=== PATIENT | male | born 1965 | race Caucasian/White ===

== ENCOUNTER 2018-04-07 20:06 | Inpatient (IN) ==
[2018-04-07 21:38] LABS: Basophils # 0.1 K/mcL (0.0-0.2); Basophils % 0.5 %; Eosinophils # 0.6 K/mcL (0.0-0.6); Eosinophils % 2.9 %; Hematocrit 41.8 % (37.5-50.1); Hemoglobin 15.2 g/dL (12.9-16.9); Immature Granulocytes % 2.2 % (0-4); Lymphocytes # 1.9 K/mcL (0.6-4.6); Lymphocytes % 10.2 %; Mean Corpuscular HGB Conc 36.4 g/dL (31.6-35.5); Mean Corpuscular Hemoglobin 36.5 pg (28.0-33.3); Mean Corpuscular Volume 100.2 fL (83.0-100.0); Mean Platelet Volume 10.4 fL (9.4-12.4); Monocytes # 1.5 K/mcL (0.0-1.3); Monocytes % 7.8 %; Neutrophils # 14.5 K/mcL (1.6-8.9); Nucleated Red Blood Cells 0.1 /100 WBC (0); Platelet Count 147 K/mcL (140-400); Red Blood Count 4.17 M/mcL (4.19-5.50); Red Cell Distribution Width 15.4 % (11.5-14.5); Segmented Neutrophils % 76.4 %
--- NOTE | 2018-04-07 21:42 | Emergency Department Note ---
Disposition Clinical Impression: Pulmonary embolism, bilateral, Elevated troponin, Shortness of breath, Hyponatremia Leukocytosis Qualifiers: Leukocytosis type: unspecified Qualified Code(s): D72.829 - Elevated white blood cell count, unspecified Disposition: Admitted As Inpatient Condition: Fair Time of Disposition: 00:00 SOB HPI - General Chief Complaint: ED Shortness of Breath/Dyspnea Stated Complaint: SOB x 3 weeks Time Seen by Provider: 04/07/18 21:08 Source: patient Limitations: no limitations Nursing Notes Reviewed: Yes Vital Signs Reviewed: Yes - History of Present Illness Patient is a 52-year-old male who presents to [facility] ED with a chief complaint of shortness of breath. States his symptoms have been worsening over the last 3 months. He started getting worsening lower external swelling in the bilateral lower extremities over the last month. Also reports chest pain since 1 month ago. States it is intermittent and worse with exertion. Patient states he has been caring for his grandchildren's was has not had time to come in to get checked out. Denies any prior cardiac history. Patient is not on any medications for anything. Pt Subjective Complaint: shortness of breath Onset (ago): month(s) (3) Severity: moderate Consistency/Duration: gradually worsening Improves with: nothing Worsens with: lying flat Associated symptoms: Reports: chest pain, pain with inspiration, cough. Denies : fever, wheezing, palpitations, nausea/vomiting Treatment prior to arrival: none Cough present: Yes Cough Description: Involuntary Cough Frequency: Intermittent Sputum production: No - Related Data Home oxygen amount: none Previous Rx's Medication Instructions Recorded Ondansetron ODT [Zofran ODT] 4 mg SL Q8HR PRN #15 tab.rapdis 10/06/16 Allergies Allergy/AdvReac Type Severity Reaction Status Date / Time Penicillins Allergy Vomiting Verified 10/05/16 20:02 Sulfa (Sulfonamide Allergy See Verified 10/05/16 20:03 Antibiotics) Comments All systems ED: reviewed and negative except as stated. Past Medical History - Past Medical History Attestation: Yes The following information was validated with the patient. Source: patient Medical history: Reports: no medical history Psychiatric history: Reports: no psych history - Social History Smoking Status: Current every day smoker Smokeless Tobacco Status: No Alcohol use: Reports: occasionally Drug use: Reports: none Physical Exam - General Limitations: no limitations General appearance: alert, in no apparent distress - Head Head exam: atraumatic, normocephalic, normal inspection - Eye Eye exam: Present: normal appearance, PERRL, EOMI - ENT ENT exam: normal exam, normal oropharynx, mucous membranes moist - Neck Neck exam: Present: normal inspection, full ROM, trachea midline - Chest Chest inspection: Present: normal inspection, symmetric chest wall rise - Respiratory Respiratory exam: Present: normal lung sounds bilaterally - Cardiovascular Cardiovascular exam: Present: normal rhythm, tachycardia - Abdominal Exam Abdominal exam: Present: soft, Non-Tender. Absent: tenderness, distention, guarding, rebound, rigidity - Extremities Exam Extremities exam: Present: pedal edema (2+). Absent: calf tenderness - Back Exam Back exam: Present: normal inspection, full ROM. Absent: tenderness - Neurological Exam Neurological exam: Present: alert, oriented X3 - Psychiatric Psychiatric exam: Present: normal affect, normal mood - Skin Skin exam: Present: warm, dry, intact, normal color Course Course Narrative: Patient seen and examined. Shortness of breath worse over the last 3 months. Cardiopulmonary workup initiated. He does have bilateral lower extremity edema. Also describes for him hard to breathe when he is lying down though he thinks that is from the drainage in his throat. Concern for possible new onset of congestive heart failure. - Reevaluation(s) Reevaluation #1: Lab called with critical troponin of 0.05. Suspect this is likely secondary to demand ischemia. However we will give a dose of 325 mg aspirin. Patient's d- dimer also elevated at 1705. CTA of the chest ordered to evaluate for pulmonary embolus. Patient does have a leukocytosis of 19,000. Hyponatremia of 125. Normal renal function. Time: 22:02 Reevaluation #2: [place] radiology called me about the CTA findings of bilateral pulmonary embolus. States he does note any right ventricular strain. Coags and heparin drip ordered. I discussed with the hospitalists Dr. Schmitt who has accepted patient for admission. Time: 22:48 Vital Signs Temperature 98.0 F 04/07/18 20:07 Pulse Rate 132 04/07/18 20:07 Respiratory Rate 16 04/07/18 20:07 Blood Pressure 100/75 04/07/18 20:07 O2 Sat by Pulse Oximetry 96 04/07/18 20:07 Temperature 98.0 F 04/08/18 07:08 Pulse Rate 108 04/08/18 07:08 Respiratory Rate 20 04/08/18 07:08 Blood Pressure 121/76 04/08/18 07:08 O2 Sat by Pulse Oximetry 96 04/08/18 07:08 Oxygen Delivery Oxygen Delivery Nasal Cannula Shortness of Breath/Dyspnea - Medical Records Medical records reviewed: Yes I reviewed the patient's medical records. - Lab Data Lab results reviewed: Yes I reviewed the patient's lab results. Result diagrams: 04/08/18 05:21 04/08/18 03:22 Lab Results 04/07/18 04/07/18 04/07/18 Range/Units 21:08 21:08 21:08 WBC 19.0 H (4.3-11.1) K/mcL RBC 4.17 L (4.19-5.50) M/mcL Hgb 15.2 (12.9-16.9) g/dL Hct 41.8 (37.5-50.1) % MCV 100.2 H (83.0-100.0) fL MCH 36.5 H (28.0-33.3) pg MCHC 36.4 H (31.6-35.5) g/dL RDW 15.4 H (11.5-14.5) % Plt Count 147 (140-400) K/mcL MPV 10.4 (9.4-12.4) fL Immature Gran % 2.2 (0-4) % Seg Neutrophils % 76.4 % Lymphocytes % 10.2 % Monocytes % 7.8 % Eosinophils % 2.9 % Basophils % 0.5 % Neutrophils # 14.5 H (1.6-8.9) K/mcL Lymphocytes # 1.9 (0.6-4.6) K/mcL Monocytes # 1.5 H (0.0-1.3) K/mcL Eosinophils # 0.6 (0.0-0.6) K/mcL Basophils # 0.1 (0.0-0.2) K/mcL Nucleated RBCs/100 WBC 0.1 H (0) /100 WBC PT (9.4-12.1) Seconds INR APTT (26.0-36.0) Seconds D-Dimer 1705 H (0-500) ng/mLFEU Sodium 125 L (136-145) mEq/L Potassium 3.7 (3.5-5.1) mEq/L Chloride 93 L (98-107) mEq/L Carbon Dioxide 22 L (23-29) mEq/L BUN 9 (6-20) mg/dL Creatinine 0.65 L (0.70-1.30) mg/dL Est GFR ( Amer) > 60 (> 60) Est GFR (Non-Af Amer) > 60 (> 60) BUN/Creatinine Ratio 14 (6-26) Glucose 82 (70-105) mg/dL Calculated Osmolality 258 L (280-300) Lactic Acid (0.5-2.2) mmol/L Calcium 8.5 L (8.6-10.3) mg/dL Troponin I 0.05 H* (< 0.04) ng/mL B-Natriuretic Peptide (Less than 100) pg/mL 04/07/18 04/07/18 04/07/18 Range/Units 21:08 21:19 22:59 WBC (4.3-11.1) K/mcL RBC (4.19-5.50) M/mcL Hgb (12.9-16.9) g/dL Hct (37.5-50.1) % MCV (83.0-100.0) fL MCH (28.0-33.3) pg MCHC (31.6-35.5) g/dL RDW (11.5-14.5) % Plt Count (140-400) K/mcL MPV (9.4-12.4) fL Immature Gran % (0-4) % Seg Neutrophils % % Lymphocytes % % Monocytes % % Eosinophils % % Basophils % % Neutrophils # (1.6-8.9) K/mcL Lymphocytes # (0.6-4.6) K/mcL Monocytes # (0.0-1.3) K/mcL Eosinophils # (0.0-0.6) K/mcL Basophils # (0.0-0.2) K/mcL Nucleated RBCs/100 WBC (0) /100 WBC PT 13.5 H (9.4-12.1) Seconds INR 1.2 APTT 30.3 (26.0-36.0) Seconds D-Dimer (0-500) ng/mLFEU Sodium (136-145) mEq/L Potassium (3.5-5.1) mEq/L Chloride (98-107) mEq/L Carbon Dioxide (23-29) mEq/L BUN (6-20) mg/dL Creatinine (0.70-1.30) mg/dL Est GFR ( Amer) (> 60) Est GFR (Non-Af Amer) (> 60) BUN/Creatinine Ratio (6-26) Glucose (70-105) mg/dL Calculated Osmolality (280-300) Lactic Acid 1.2 (0.5-2.2) mmol/L Calcium (8.6-10.3) mg/dL Troponin I (< 0.04) ng/mL B-Natriuretic Peptide 246 H (Less than 100) pg/mL - Radiology Data Radiology results reviewed: Yes I reviewed the patient's radiology results. Chest X-Ray 04/07/18 21:08 IMPRESSION: No acute cardiopulmonary disease. D/ / Sabino Dewitt MD / Sabino Dewitt MD Interpreting Provider: Sabino Dewitt MD Chest CTA 04/07/18 21:57 IMPRESSION: 1. Bilateral pulmonary emboli. 2. Ground-glass opacities are nonspecific and may be infectious, inflammatory or indicate pulmonary edema. Critical results were called by Dr. Howie Alvarez MD to [facility] on 04/07/2018 at 22:46. D/ / Howie Alvarez MD / Howie Alvarez MD Interpreting Provider: Howie Alvarez MD - EKG Data EKG attestation: Yes I reviewed and interpreted this EKG. EKG results narrative: EKG done at 2106 shows sinus tachycardia with a rate of [address] elevation or depression noted. T-wave inversions noted in leads V2 and V3. Left axis deviation. Low voltage throughout.
[2018-04-07 21:55] LABS: BUN/Creatinine Ratio 14 (6-26); Blood Urea Nitrogen 9 mg/dL (6-20); Calcium 8.5 mg/dL (8.6-10.3); Carbon Dioxide 22 mEq/L (23-29); Chloride 93 mEq/L (98-107); Glucose 82 mg/dL (70-105); Osmolality,Calculated 258 (280-300); Potassium 3.7 mEq/L (3.5-5.1); Sodium 125 mEq/L (136-145); eGFR For African Americans > 60 (> 60); eGFR For Non-African Americans > 60 (> 60)
[2018-04-07 21:57] LABS: Troponin I 0.05 ng/mL (< 0.04)
[2018-04-07] MEDS ORDERED: Isovue-370 500 ML INFUS..BTL IV ONE (21:57)
[2018-04-07] MEDS ORDERED: Aspirin 81 MG TAB.CHEW PO STA (21:58)
[2018-04-07] MEDS ORDERED: *HR* Heparin 5,000 UNIT/ML VIAL IVP ONE (22:46)
[2018-04-07] MEDS ORDERED: *HR* Heparin 5,000 UNIT/ML VIAL IVP PRN ×2 (22:46)
[2018-04-07 23:37] LABS: Activated Partial Thrombo Time 30.3 Seconds (26.0-36.0); INR 1.2; Prothrombin Time 13.5 Seconds (9.4-12.1)
[2018-04-07] MEDS: Heparin 25,000 UNIT/500 ML D5W 25,000 UNIT/500 ML BAG IVC SCH (23:50)
--- NOTE | 2018-04-07 23:51 | Emergency Department Note ---
Disposition Clinical Impression: Pulmonary embolism, bilateral, Elevated troponin, Shortness of breath, Hyponatremia Leukocytosis Qualifiers: Leukocytosis type: unspecified Qualified Code(s): D72.829 - Elevated white blood cell count, unspecified Disposition: Admitted As Inpatient Condition: Fair General Adult HPI - General Chief complaint: ED Shortness of Breath/Dyspnea Stated complaint: SOB x 3 weeks Time Seen by Provider: 04/07/18 21:08 Source: patient Limitations: no limitations Nursing Notes Reviewed: Yes Vital Signs Reviewed: Yes - History of Present Illness Pain Scale: 9 - Related Data Previous Rx's Medication Instructions Recorded Ondansetron ODT [Zofran ODT] 4 mg SL Q8HR PRN #15 tab.rapdis 10/06/16 Allergies Allergy/AdvReac Type Severity Reaction Status Date / Time Penicillins Allergy Vomiting Verified 10/05/16 20:02 Sulfa (Sulfonamide Allergy See Verified 10/05/16 20:03 Antibiotics) Comments Past Medical History - Past Medical History Medical history: Reports: no medical history Psychiatric history: Reports: no psych history - Social History Smoking Status: Current every day smoker Smokeless Tobacco Status: No Alcohol use: Reports: occasionally Drug use: Reports: none Physical Exam - General Limitations: no limitations General appearance: alert, in no apparent distress Course Vital Signs Temperature 98.0 F 04/07/18 20:07 Pulse Rate 132 04/07/18 20:07 Respiratory Rate 16 04/07/18 20:07 Blood Pressure 100/75 04/07/18 20:07 O2 Sat by Pulse Oximetry 96 04/07/18 20:07 Temperature 98.0 F 04/08/18 07:08 Pulse Rate 108 04/08/18 07:08 Respiratory Rate 20 04/08/18 07:08 Blood Pressure 121/76 04/08/18 07:08 O2 Sat by Pulse Oximetry 96 04/08/18 07:08 Oxygen Delivery Oxygen Delivery Nasal Cannula Medical Decision Making - Lab Data Result diagrams: 04/08/18 05:21 04/08/18 03:22 Lab Results 04/07/18 04/07/18 04/07/18 Range/Units 21:08 21:08 21:08 WBC 19.0 H (4.3-11.1) K/mcL RBC 4.17 L (4.19-5.50) M/mcL Hgb 15.2 (12.9-16.9) g/dL Hct 41.8 (37.5-50.1) % MCV 100.2 H (83.0-100.0) fL MCH 36.5 H (28.0-33.3) pg MCHC 36.4 H (31.6-35.5) g/dL RDW 15.4 H (11.5-14.5) % Plt Count 147 (140-400) K/mcL MPV 10.4 (9.4-12.4) fL Immature Gran % 2.2 (0-4) % Seg Neutrophils % 76.4 % Lymphocytes % 10.2 % Monocytes % 7.8 % Eosinophils % 2.9 % Basophils % 0.5 % Neutrophils # 14.5 H (1.6-8.9) K/mcL Lymphocytes # 1.9 (0.6-4.6) K/mcL Monocytes # 1.5 H (0.0-1.3) K/mcL Eosinophils # 0.6 (0.0-0.6) K/mcL Basophils # 0.1 (0.0-0.2) K/mcL Nucleated RBCs/100 WBC 0.1 H (0) /100 WBC PT (9.4-12.1) Seconds INR APTT (26.0-36.0) Seconds D-Dimer 1705 H (0-500) ng/mLFEU Sodium 125 L (136-145) mEq/L Potassium 3.7 (3.5-5.1) mEq/L Chloride 93 L (98-107) mEq/L Carbon Dioxide 22 L (23-29) mEq/L BUN 9 (6-20) mg/dL Creatinine 0.65 L (0.70-1.30) mg/dL Est GFR ( Amer) > 60 (> 60) Est GFR (Non-Af Amer) > 60 (> 60) BUN/Creatinine Ratio 14 (6-26) Glucose 82 (70-105) mg/dL Calculated Osmolality 258 L (280-300) Lactic Acid (0.5-2.2) mmol/L Calcium 8.5 L (8.6-10.3) mg/dL Troponin I 0.05 H* (< 0.04) ng/mL B-Natriuretic Peptide (Less than 100) pg/mL 04/07/18 04/07/1818 Range/Units 21:08 21:19 22:59 WBC (4.3-11.1) K/mcL RBC (4.19-5.50) M/mcL Hgb (12.9-16.9) g/dL Hct (37.5-50.1) % MCV (83.0-100.0) fL MCH (28.0-33.3) pg MCHC (31.6-35.5) g/dL RDW (11.5-14.5) % Plt Count (140-400) K/mcL MPV (9.4-12.4) fL Immature Gran % (0-4) % Seg Neutrophils % % Lymphocytes % % Monocytes % % Eosinophils % % Basophils % % Neutrophils # (1.6-8.9) K/mcL Lymphocytes # (0.6-4.6) K/mcL Monocytes # (0.0-1.3) K/mcL Eosinophils # (0.0-0.6) K/mcL Basophils # (0.0-0.2) K/mcL Nucleated RBCs/100 WBC (0) /100 WBC PT 13.5 H (9.4-12.1) Seconds INR 1.2 APTT 30.3 (26.0-36.0) Seconds D-Dimer (0-500) ng/mLFEU Sodium (136-145) mEq/L Potassium (3.5-5.1) mEq/L Chloride (98-107) mEq/L Carbon Dioxide (23-29) mEq/L BUN (6-20) mg/dL Creatinine (0.70-1.30) mg/dL Est GFR ( Amer) (> 60) Est GFR (Non-Af Amer) (> 60) BUN/Creatinine Ratio (6-26) Glucose (70-105) mg/dL Calculated Osmolality (280-300) Lactic Acid 1.2 (0.5-2.2) mmol/L Calcium (8.6-10.3) mg/dL Troponin I (< 0.04) ng/mL B-Natriuretic Peptide 246 H (Less than 100) pg/mL Critical Care Time Critical Care Time: Yes Total Critical Care Time: 45 Attestation: Critical care performed: Time is exclusive of separately billable procedures. Time includes: direct patient care, patient reassessment, coordination of patient care, interpretation of data (laboratory data, radiology data, and respiratory data), review of patient's medical records, medical consultation and documentation of patient care. Procedures included in critical care time: Procedures excluded from critical care time: Attestation Statement - Attestation Attestation: I, Evan Arnold MD, personally evaluated this patient and discussed their management with the resident physician. I reviewed the resident's note and agree with the documented findings, medical decision making, and plan of care. 52-year-old male presents to the emergency department with a complaint of shortness of breath for the past 5-6 months, worse over the past 4 months. Also worse over the past several weeks. Some cough. No sputum production. Some pleuritic chest pain with coughing or deep breathing. Patient states that he is a single father with 3 small children and also some grandchildren that he has been racing and he is been unable to go the doctor because he has to care for the children. He finally just got the grandchildren with her mother and his children were sent to their mothers and [facility]. On examination patient is a well-developed well-nourished male in no acute distress. He is alert and oriented 3. There is no cyanosis or diaphoresis. He is mildly tachypneic. Breath sounds are clear and equal bilaterally. Heart regular with a mild to moderate tachycardia. Abdomen soft and nontender with normal bowel sounds. Trace pedal edema bilaterally. EKG shows a sinus tachycardia with ventricular rate of 121. Moderate T-wave abnormality, consider anterior ischemia. Chest x-ray negative. Labs reviewed. WBC 19. Sodium 125. Troponin 0.05. BNP 246. D-dimer 1705. CTA of the chest obtained and showed: 1. Bilateral pulmonary emboli. 2. Ground-glass opacities are nonspecific and may be infectious, inflammatory or indicate pulmonary edema. Heparin infusion initiated. The hospitalist, Dr. Schmitt, was consulted and accepted admission of the patient.
--- NOTE | 2018-04-07 23:53 | Internal Med History&Physical ---
<Jannie Camargo - Last Filed: 04/08/18 06:27> Date of Encounter: 04/08/18 Time of Encounter: 23:00 Internal Medicine - H&P: HPI Chief complaint: dyspnea Admitted From: Home History of present illness: Mr. Neumann is a 52 year old male without known PMH who presents to the emergency department with shortness of breath x 6 months, which has been significantly worsening over last 4 months. He reports that he has not come to the hospital sooner to be checked out because he hasn't had time because he's a single parent and is also watching several grandchildren. States his breathing has gotten worse because he is only able to walk 15 feet before getting dyspneic, energy level is significantly decreased, and states there are times when he can hardly stand long enough to cook meals. Has had bilateral lower extremity edema for a few months which is new for him. Reports feeling lightheaded and "off balance" on a daily basis. He admits to orthopnea and must sleep in a recliner. He has pleuritic chest pain that is worse with cough; productive cough, but cannot describe the sputum because he swallows the sputum rather than spit it out. He states that he has been having alternating fevers and chills for the last few months. He also admits to decreased PO intake due to daily nausea and vomiting--denies bright red blood or coffee-ground appearance, describes it as foamy white. He denies any personal or familial history of clotting disorders. In the emergency department the patient was afebrile, tachycardic HR 132, RR 16 , BP 100/75, SPO2 96%. Initial lab workup significant for d-dimer 1705, troponin 0.05, BNP 246. Chest CTA with contrast shows extensive pulmonary emboli throughout all lobes bilaterally and nonspecific ground-glass opacities. He was given 324 mg aspirin, heparin bolus, and heparin gtt was started in the ED. He was admitted to the hospitalist service for further evaluation and care. Past Med Surg Social Fam HX - Past Medical History Medical history: no medical history Psychiatric history: no psych history - Past Surgical History Additional surgical history: Jaw sx - Social History Smoking Status: Current every day smoker Smokeless Tobacco Status: No Alcohol use: occasionally Drug use: none - Family History Mother Living Status: Hx Family Cardiac Disorders: Yes ([place], stroke) Father Hx Family Cardiac Disorders: Yes (HTN) Internal Medicine - H&P: Meds No Known Home Drugs 04/08/18 [History] 3 Allergy/AdvReac Type Severity Reaction Status Date / Time Penicillins Allergy Vomiting Verified 04/08/18 08:45 Sulfa (Sulfonamide Allergy Nausea Verified 04/08/18 08:45 Antibiotics) All Systems PM: A 10-system review of systems was performed and is negative for pertinent findings except as documented above in the HPI. - Constitutional Constitutional: as per HPI - EENT Eyes: floaters - Cardiovascular Cardiovascular ROS IM: as per HPI, chest pain, dyspnea, dyspnea on exertion, edema, lightheadedness, orthopnea - Respiratory Respiratory: as per HPI, cough, dyspnea, dyspnea on exertion, pain with cough - Gastrointestinal Gastrointestinal: as per HPI, diarrhea, nausea, vomiting, no abdominal pain - Musculoskeletal Musculoskeletal ROS IM: joint swelling (bilateral ankle) - Neurological Neurological ROS: as per HPI, disequilibrium, dizziness, other visual disturbances - Constitutional Vitals: Temp Pulse Resp BP Pulse Ox 98.0 F 117 20 103/81 98 04/07/18 20:07 04/07/18 22:30 04/07/18 22:30 04/07/18 22:30 04/07/18 22:30 General appearance: Present: mild distress, A&O X 3, answers questions appropriately - Head Head exam: Present: atraumatic, normocephalic - Eye Eye exam: Present: normal appearance, PERRL - ENT ENT exam: Present: mucous membranes moist - Neck Neck exam general surgery: Present: normal inspection, supple, trachea midline - Respiratory Respiratory exam: Present: CTAB, tachypnea (respiratory effort increased). Absent: rales, rhonchi, wheezes Additional comments: coughing frequently - Cardiovascular Cardiovascular exam: Present: +S1, +S2, tachycardia (sinus on monitor) - GI/Abdominal GI/Abdominal exam: Present: normal bowel sounds, soft. Absent: distended, guarding, rebound, rigid, tenderness - Extremities Exam Extremities exam: Present: pedal edema (non pitting), tenderness, warm. Absent : cyanotic Additional comments: BLE non-pittting edema; bilateral calf swelling; DP pulses 2+/4 bilateral - Back Exam Back exam: Present: normal inspection - Neurological Exam Neurological exam: Present: alert, CN II-XII intact, oriented X3, no focal deficits. Absent: facial droop, speech deficit Additional comments: moves all extremities spontaneously - Psychiatric Psychiatric exam: Present: normal affect, normal mood - Skin Skin exam: Present: dry, intact, normal color. Absent: cyanosis, rash Internal Med - H&P Results - Labs CBC & Chem 7: 04/08/18 05:21 04/08/18 03:22 - Assessment and plan (1) Pulmonary emboli Current Visit: Yes Status: Acute Assessment and plan: Chest CTA with contrast shows extensive pulmonary emboli throughout all lobes bilaterally Wells' score 7.5 CXR negative for infiltrate or pleural fluid Most likely cause for pt's c/o dyspnea No known h/o clotting disorder--likely need work-up for coagulopathy SpO2 95-100% on 2L nasal cannula Plan Continuous pulse ox Continuous cardiac monitoring Supplemental oxygenation Heparin gtt Check PTT in morning Ultrasound BLE for possible DVT Hematology consult for rec's on anticoagulation (2) Elevated troponin Current Visit: Yes Status: Acute Assessment and plan: Troponin 0.05 May be due to myocardial ischemia from ACS and/or PE; heart failure and stress cardiomyopathy are also possible Multiple pulmonary emboli on CTA chest EKG shows T-wave abnormalities in V2 and V3, no ST elevations or depressions Pt denies any cardiac history, but admits family hx Plan Trend troponin x 2 Continuous cardiac monitoring ACS workup Cardiac consult Echocardiogram in AM (3) Elevated d-dimer Current Visit: Yes Status: Acute Assessment and plan: D-dimer 1705 Most likely related to the multiple pulmonary emboli seen on CT Plan as above for "Pulmonary emboli" (4) Elevated brain natriuretic peptide (BNP) level Current Visit: Yes Status: Acute Assessment and plan: BNP 246 Possible etiology includes PE and CHF Plan as above for "Pulmonary emboli" and "Elevated troponin" (5) Hyponatremia Current Visit: Yes Status: Acute Assessment and plan: Na 125 May be related to reduced effective arterial blood volume d/t possible heart failure Calculated serum osmolality 258 Plan Recheck on morning labs Urine and serum osmolality (6) Leukocytosis Current Visit: Yes Status: Acute Assessment and plan: Afebrile White count 19 Likely related d/t stress reaction Plan Follow on morning labs Qualifiers: Leukocytosis type: unspecified Qualified Code(s): D72.829 - Elevated white blood cell count, unspecified (7) Tobacco abuse Current Visit: Yes Status: Acute Assessment and plan: Nicotine patch if patient desires (8) DVT prophylaxis Current Visit: Yes Status: Acute Assessment and plan: On heparin gtt - Time Spent With Patient Total time spent is greater than 50% in coordination of care (as documented) at patient's floor/unit and/or counseling patient: <Kathy Brown - Last Filed: 04/11/18 06:41> Date of Encounter: 04/08/18 Internal Medicine - H&P: HPI History of present illness: Mr. Neumann is a 52 year old male All Systems PM: A 10-system review of systems was performed and is negative for pertinent findings except as documented above in the HPI. - Constitutional Vitals: Temp Pulse Resp BP Pulse Ox 98.2 F 93 16 116/75 92 04/11/18 04:04 04/11/18 04:04 04/11/18 04:04 04/11/18 04:04 04/11/18 04:04 Internal Med - H&P Results - Labs CBC & Chem 7: 04/11/18 04:37 04/11/18 04:37 Labs: Short CBC 04/11/18 Range/Units 04:37 WBC 10.9 (4.3-11.1) K/mcL Hgb 13.2 (12.9-16.9) g/dL Hct 37.3 L (37.5-50.1) % Plt Count 200 (140-400) K/mcL Neutrophils # 7.5 (1.6-8.9) K/mcL BMP 04/11/18 04:37 Sodium 133 L Potassium 4.1 Chloride 103 Carbon Dioxide 24 BUN 7 Creatinine 0.53 L Glucose 121 H Calcium 8.4 L - Impressions ITS Impressions Echocardiogram 04/08/18 07:00 Impressions: Technically challenging due to body habitus. Sinus tachycardia. LVEF 65-70%. Indeterminate diastolic function. Atypical septal motion. RV size is not optimally visualized. Function appears mildly reduced by Doppler but visualization is limited. No significant valvular dysfunction. No significant TR signal to estimate RVSP. IVC is not dilated and demonstrates normal respiratory collapse. Left Ventricular Wall Motion: Rest Echo Findings All wall segments showed normal motion. Findings: Study Quality * Technically challenging due to body habitus. ECG Findings * Sinus tachycardia. Left Ventricle * LVEF 65-70%. * Indeterminate diastolic function. * LV chamber size and wall thickness appear normal. * Atypical septal motion. Right Ventricle * RV size is not optimally visualized. Function appears mildly reduced by Doppler but visualization is limited. Left Atrium * Normal left atrial size. Right Atrium * Normal right atrial size. Aortic Valve * No aortic regurgitation. * Aortic valve not well visualized. * No aortic stenosis. Mitral Valve * Normal mitral valve structure. * No mitral regurgitation. * No mitral stenosis. Tricuspid Valve * Normal tricuspid valve structure. * Trace tricuspid regurgitation. * Estimated RA pressure is 3 mmHg. Pulmonic Valve * Pulmonic valve is not well visualized. * No pulmonic stenosis. * No pulmonic regurgitation. Pulmonary Artery * Pulmonary artery not well visualized. Aorta * Normally sized aortic root. Pericardium * There is no pericardial effusion present. Interatrial Septum * No evidence of PFO by color Doppler. IVC * Normal IVC dimensions and inspiratory collapse. Abdomen/Pelvis CT 04/08/18 23:00 IMPRESSION: 1. Bilateral DVT involving the bilateral superficial femoral veins and on the left the common femoral vein. There is no extension into the external iliac veins. 2. Pancolonic diverticulosis with sigmoid colon wall thickening which could either indicate sequelae of chronic diverticular disease or colon cancer. D/ / Howie Alvarez MD / Howie Alvarez MD Interpreting Provider: Howie Alvarez MD - Attending Attestation I have personally performed the crawley portion of history and physical examination. I discussed these findings,assessment and plans outlined above with the resident, and I agree with the proposed assessment and plan. - Assessment and plan (1) Elevated troponin Current Visit: Yes Status: Acute (2) Leukocytosis Current Visit: Yes Status: Resolved Qualifiers: Leukocytosis type: unspecified Qualified Code(s): D72.829 - Elevated white blood cell count, unspecified (3) DVT prophylaxis Current Visit: Yes Status: Acute (4) Pulmonary embolism, bilateral Current Visit: Yes Status: Acute (5) DVT (deep venous thrombosis) Current Visit: Yes Status: Acute Qualifiers: DVT location: lower extremity Affected thrombotic vein of extremity: iliac Chronicity: acute Laterality: bilateral Qualified Code(s): I82.423 - Acute embolism and thrombosis of iliac vein, bilateral (6) Pulmonary edema Current Visit: Yes Status: Acute Qualifiers: Chronicity: acute Qualified Code(s): J81.0 - Acute pulmonary edema - Time Spent With Patient Total time spent is greater than 50% in coordination of care (as documented) at patient's floor/unit and/or counseling patient:
[2018-04-08 04:30] LABS: BUN/Creatinine Ratio 16 (6-26); Blood Urea Nitrogen 9 mg/dL (6-20); Calcium 8.2 mg/dL (8.6-10.3); Carbon Dioxide 22 mEq/L (23-29); Chloride 98 mEq/L (98-107); Glucose 85 mg/dL (70-105); Osmolality,Calculated 264 (280-300); Potassium 3.8 mEq/L (3.5-5.1); Sodium 128 mEq/L (136-145); eGFR For African Americans > 60 (> 60); eGFR For Non-African Americans > 60 (> 60)
[2018-04-08 05:51] LABS: Basophils # 0.1 K/mcL (0.0-0.2); Basophils % 0.5 %; Eosinophils # 0.7 K/mcL (0.0-0.6); Eosinophils % 3.9 %; Hemoglobin 14.5 g/dL (12.9-16.9); Immature Granulocytes % 1.9 % (0-4); Lymphocytes # 2.5 K/mcL (0.6-4.6); Lymphocytes % 14.7 %; Mean Corpuscular HGB Conc 36.3 g/dL (31.6-35.5); Mean Corpuscular Hemoglobin 36.4 pg (28.0-33.3); Mean Corpuscular Volume 100.5 fL (83.0-100.0); Mean Platelet Volume 10.2 fL (9.4-12.4); Monocytes # 1.4 K/mcL (0.0-1.3); Monocytes % 8.6 %; Neutrophils # 11.7 K/mcL (1.6-8.9); Platelet Count 149 K/mcL (140-400); Red Blood Count 3.98 M/mcL (4.19-5.50); Red Cell Distribution Width 15.4 % (11.5-14.5); Segmented Neutrophils % 70.4 %
[2018-04-08 06:00] LABS: Chol/HDL Ratio 4.7 (0-4.9)
[2018-04-08] MEDS ORDERED: D5 IVC ONE (06:36)
[2018-04-08] MEDS ORDERED: NACL 0.9% IVC ONE (06:36)
[2018-04-08] MEDS ORDERED: Nicotine 7 MG PATCH.TD24 TD SCH (09:00)
--- NOTE | 2018-04-08 09:24 | Cardiology Consult Note ---
Addendum entered and electronically signed by Karina Perez CNP 04/08/18 10: 47: Original Note: Date of Encounter: 04/08/18 Time of Encounter: 09:15 Assessment and Plan (1) Pulmonary embolism, bilateral Current Visit: Yes Status: Acute Per cardiology: -Admitted with increased shortness of breath. -Bilateral PEs noted per CT. -On heparin drip. -Lower extremity duplex pending. -Management per primary service. (2) Elevated troponin Current Visit: Yes Status: Acute Per cardiology: -Troponins 0.05, 0.05, 0.04 in the setting of PE. -Denies chest pain. -ECG with ST, HR 121, T wave inversions noted in anterior leads. No previous ECGs to review. -Echo pending. -On heparin drip. -LDL this admission 54, not on statin. -Do not suspect NSTEMI, suspect demand ischemia related to above. No cardiac rehab consult warranted. -Further recommendations pending TTE. -Will start ASA, BB. (3) Elevated brain natriuretic peptide (BNP) level Current Visit: Yes Status: Acute Per cardiology: -BNP noted to be 246 in the setting of PE -Bilateral lower extremity edema noted. -Chest CT with ground glass opacities, possible pulmonary edema. -TTE pending. -Further recommendations pending TTE. Discussion w patient/family: The assessment and plan as outlined above was discussed with the patient who expressed understanding and agreement. All questions were answered. Thank you for involving us in the care of your patient. Please call with any questions. Discussed and reviewed with . History of Present Illness Consult date: 04/07/18 Requesting physician: Jannie Camargo Consult reason: elevated troponin Chief complaint: shortness of breath History of present illness: Mr. Neumann is a 52 year old male with a relevant past medical history of GERD, anxiety, tobacco abuse who presented to [facility] with complaints of increased shortness of breath. Patient states he has noticed shortness of breath for a few months now, however states he did not seek medical treatment. Patient reports he has been raising 3 children by himself and was too busy to seek care. Patient also reports lower extremity edema. Patient denies chest pain. Reports fatigue. Past Med Surg Social Fam HX - Past Medical History Attestation: Yes The following information was validated with the patient. Source: patient, old records reviewed Medical history: GERD Psychiatric history: anxiety - Past Surgical History Additional surgical history: Jaw sx - Social History Smoking Status: Current every day smoker Packs per day: 1 Smokeless Tobacco Status: No Alcohol use: occasionally Drug use: none - Family History Mother Living Status: Hx Family Cardiac Disorders: Yes ([place], stroke) Father Hx Family Cardiac Disorders: Yes (HTN) Medications and Allergies No Known Home Drugs 04/08/18 [History] 3 Allergy/AdvReac Type Severity Reaction Status Date / Time Penicillins Allergy Vomiting Verified 04/08/18 08:45 Sulfa (Sulfonamide Allergy Nausea Verified 04/08/18 08:45 Antibiotics) All Systems Review: The remainder of the systems were reviewed and are negative - Cardiovascular Cardiovascular: as per HPI, dyspnea at rest, dyspnea on exertion, leg edema Physical Examination Vital Signs, Last 4 Hours Temp Pulse Resp BP Pulse Ox 04/08/18 07:08 98.0 F 108 20 121/76 96 General: Conversant, No Apparent Distress HEENT: Atraumatic, Normocephaly, Mucus Membranes Moist Neck: No JVD, Normal carotid pulses Cardiac: Reg Rate and Rhythm, Normal S1 and S2, No Murmur Lungs: Normal Breath Sounds, No Wheeze, Rales, Rhonchi Neuro: Alert and responsive, No focal deficits noted Abdomen: Soft, Non-Tender Skin: No rashes noted on visualized skin Musculoskeletal: No Chest Wall Tenderness Extremities: No Clubbing, No Cyanosis, Normal Pulses, Other (Bilateral, moderate lower extremity edema noted. ) Results 04/08/18 05:21 04/08/18 03:22 Lab Results Impressions Chest X-Ray 04/07/18 21:08 IMPRESSION: No acute cardiopulmonary disease. D/ / Sabino Dewitt MD / Sabino Dewitt MD Interpreting Provider: Sabino Dewitt MD Chest CTA 04/07/18 21:57 IMPRESSION: 1. Bilateral pulmonary emboli. 2. Ground-glass opacities are nonspecific and may be infectious, inflammatory or indicate pulmonary edema. Critical results were called by Dr. Howie Alvarez MD to Glenny Woodward on 04/07/2018 at 22:46. D/ / Howie Alvarez MD / Howie Alvarez MD Interpreting Provider: Howie Alvarez MD Active Medications Heparin Sodium (Porcine) (Heparin) 6,400 unit 70 unit/kg (6400 unit) IVP Q6HR PRN PRN Reason: SEE COMMENTS Stop: 10/07/18 22:47 Heparin Sodium (Porcine) (Heparin) 3,200 unit 35 unit/kg (3200 unit) IVP Q6H PRN PRN Reason: SEE COMMENTS Stop: 10/07/18 22:47 Last Admin: 04/08/18 06:12 Dose: 3,200 unit Heparin Sodium/Dextrose (Heparin 25,000 Unit/500 Ml D5w) 25,000 unit in 500 mls @ 25.401 mls/hr IVC .[id number] CHARISMA; 14 UNIT/KG/HR PRN Reason: Protocol Stop: 10/07/18 23:01 Last Titration: 04/08/18 06:08 Dose: 16 unit/kg/hr, 29.03 mls/hr Dextrose/Sodium Chloride (D5% And 0.9% Nacl 1000 Ml) 250 mls @ 75 mls/hr IVC .[id number] ONE Stop: 04/08/18 09:55 Last Admin: 04/08/18 08:31 Dose: 75 mls/hr Laboratory Tests 04/07/18 04/07/18 04/07/18 21:08 21:08 21:08 WBC 19.0 H Hgb Creatinine Troponin I 0.05 H* B-Natriuretic Peptide 246 H 04/08/18 04/08/18 04/08/18 03:22 03:22 05:21 WBC 16.6 H Hgb 14.5 Creatinine 0.55 L Troponin I 0.05 H* B-Natriuretic Peptide 04/08/18 07:47 WBC Hgb Creatinine Troponin I 0.04 H* B-Natriuretic Peptide - Imaging and Cardiology Chest Xray: report reviewed Echo: pending - EKG Interpretation EKG results cardiology: personally reviewed (ECG with ST, HR 121. T wave inversions noted in anterior leads.), other (Telemetry reviewed with average HR previous 12 hours noted to be 110, ST. PACs noted.) Consult Discharge Plan - Plan Referrals: Deborah Leos DO [Resident] - 04/15/18 5:00 pm
--- NOTE | 2018-04-08 09:44 | Pulmonology Consult Note ---
Date of Encounter: 04/08/18 Time of Encounter: 09:15 Assessment and Plan (1) Acute respiratory failure with hypoxia Current Visit: Yes Status: Acute Patient presenting with Acute respiratory failure with hypoxia secondary to Bilateral Multi-lobar PE now saturating well on Room air . (2) Pulmonary embolism, bilateral Current Visit: Yes Status: Acute Patient has unprovoked PE to continue Heparin therapy , patient has extensive bilateral PE with some RV strain clinically with High BNP and Troponin leak , ECHO study was suboptimal no significant RV strain no TR jet , IVC was not distended with collapse with respiratory variation . The current shortness of breadth can be due to this multiple Bilateral PE complicated by diastolic heart failure . Patient might be a candidate for Newer Oral anticoagulant . Patient will need Full Hypercoagulable work up will leave it to oncology consult team will also need age appropriate cancer screening. Like for Colon , Pancreas and prostate will leave it Oncology team we can start with Tumour markers CA19-9 , PSA i communicated my assesment to referring physician. (3) Pulmonary edema Current Visit: Yes Status: Acute ECHO didnt shows any evidence of significant RV failure . Has some indeterminate diastolic dysfunction he might benefit some gentle diuresis if his orthopnea is very symptomatic Qualifiers: Chronicity: acute Qualified Code(s): J81.0 - Acute pulmonary edema (4) Elevated brain natriuretic peptide (BNP) level Current Visit: Yes Status: Acute History of Present Illness Consult date: 04/08/18 Requesting physician: Lyly Webb Reason for consult: dyspnea, cough, pulmonary embolism Chief complaint: Shortness of Breadth History of present illness: 52 year old male doesnt follow with doctors as an outpatient doesnt have any diagnosed past medical history, doesnt do any age appropriate cancer screening . Patient is pretty active mello taking care of his 6 grand children found to have slowly progressive shortness of breadth with some cough had some orthopnea , denies any chest pain or chest tightness , denies any pedal edema came to the ER as his shortness of breadth slowly progressed to the level that cannot walk in his house , denied neuro or abdominal symptoms denied any intracranial issues or GI bleed issues in the past , CTA showed extensive Bilateral multilobar Pulmonary embolism , has extensive DVT patient is on IV Heparin . pulmonary was consulted for this Pulmonary embolism with DVT. Past Med Surg Social Fam HX - Past Medical History Medical history: GERD Psychiatric history: anxiety - Past Surgical History Additional surgical history: Jaw sx - Social History Smoking Status: Current every day smoker Packs per day: 1 Smokeless Tobacco Status: No Alcohol use: occasionally Drug use: none - Family History Mother Living Status: Hx Family Cardiac Disorders: Yes ([place], stroke) Father Hx Family Cardiac Disorders: Yes (HTN) Medications and Allergies No Known Home Drugs 04/08/18 [History] 3 Allergy/AdvReac Type Severity Reaction Status Date / Time Penicillins Allergy Vomiting Verified 04/08/18 08:45 Sulfa (Sulfonamide Allergy Nausea Verified 04/08/18 08:45 Antibiotics) All Systems: The remainder of the systems were reviewed and are negative Physical Examination Vital Signs: Vital Signs, Last 4 Hours Temp Pulse Resp BP Pulse Ox 04/08/18 07:08 98.0 F 108 20 121/76 96 Results - Laboratory Findings CBC and BMP: 04/08/18 05:21 04/08/18 03:22 PT/INR, D-dimer PT 13.5 Seconds (9.4-12.1) H 04/07/18 22:59 D-Dimer 1705 ng/mLFEU (0-500) H 04/07/18 21:08 Abnormal lab findings: Abnormal lab results WBC 16.6 K/mcL (4.3-11.1) H 04/08/18 05:21 RBC 3.98 M/mcL (4.19-5.50) L 04/08/18 05:21 MCV 100.5 fL (83.0-100.0) H 04/08/18 05:21 MCH 36.4 pg (28.0-33.3) H 04/08/18 05:21 MCHC 36.3 g/dL (31.6-35.5) H 04/08/18 05:21 RDW 15.4 % (11.5-14.5) H 04/08/18 05:21 Neutrophils # 11.7 K/mcL (1.6-8.9) H 04/08/18 05:21 Monocytes # 1.4 K/mcL (0.0-1.3) H 04/08/18 05:21 Eosinophils # 0.7 K/mcL (0.0-0.6) H 04/08/18 05:21 Nucleated RBCs/100 WBC 0.1 /100 WBC (0) H 04/07/18 21:08 PT 13.5 Seconds (9.4-12.1) H 04/07/18 22:59 APTT 54.9 Seconds (26.0-36.0) H D 04/08/18 05:21 D-Dimer 1705 ng/mLFEU (0-500) H 04/07/18 21:08 Sodium 128 mEq/L (136-145) L 04/08/18 03:22 Carbon Dioxide 22 mEq/L (23-29) L 04/08/18 03:22 Creatinine 0.55 mg/dL (0.70-1.30) L 04/08/18 03:22 Calculated Osmolality 264 (280-300) L 04/08/18 03:22 Calcium 8.2 mg/dL (8.6-10.3) L 04/08/18 03:22 Troponin I 0.04 ng/mL (< 0.04) H* 04/08/18 07:47 B-Natriuretic Peptide 246 pg/mL (Less than 100) H 04/07/18 21:08 HDL Cholesterol 20 mg/dL (40-59) L 04/08/18 05:21 - Clinical Findings Intake & Output: Intake & Output 04/07/18 04/08/18 04/08/18 23:59 07:59 15:59 Intake Total 150 / 150 Output Total 600 / 600 Balance -450 / -450 Consult Discharge Plan - Plan Referrals: Deborah Leos DO [Resident] - 04/15/18 5:00 pm
--- NOTE | 2018-04-08 11:25 | Internal Med Progress Note ---
Date of Encounter: 04/08/18 Time of Encounter: 11:23 - Assessment and plan (1) Pulmonary embolism, bilateral Current Visit: Yes Status: Acute Assessment and plan: Newly diagnosed bilateral PE. Hemodynamically stable. Echocardiogram ordered . Heparin drip started. Pulmonologists septic technician, and chicken vaccinator consulted. (2) DVT (deep venous thrombosis) Current Visit: Yes Status: Acute Assessment and plan: New onset. Doppler plant technician called with the findings. I consulted vascular surgeon immediately and talk to him with no further recommendation but advised to continue heparin drip. Qualifiers: DVT location: lower extremity Affected thrombotic vein of extremity: iliac Chronicity: acute Laterality: bilateral Qualified Code(s): I82.423 - Acute embolism and thrombosis of iliac vein, bilateral (3) Elevated troponin Current Visit: Yes Status: Acute Assessment and plan: Reclamation Furnace Operator's on board and does not suspect NST WI but demand ischemia related to above. Started aspirin and beta silvina. Echo ordered. Will call chicken vaccinator to review echo soon. (4) Leukocytosis Current Visit: Yes Status: Acute Assessment and plan: No obvious infiltrate. But will cover patient for possible underlying pneumonia in context of present scenario Qualifiers: Leukocytosis type: unspecified Qualified Code(s): D72.829 - Elevated white blood cell count, unspecified (5) Pulmonary edema Current Visit: Yes Status: Acute Assessment and plan: Raised BNP in the setting of PE. Chest CT with groundglass opacity possible pulmonary edema. A strict I&O's. A weighted echocardiogram report. Will consider diuretic if advised by chicken vaccinator after reviewing echocardiogram otherwise continue to monitor. No IV fluid. Qualifiers: Chronicity: acute Qualified Code(s): J81.0 - Acute pulmonary edema (6) DVT prophylaxis Current Visit: Yes Status: Acute Assessment and plan: CONTINUE HEPARIIN DRIP - Time Spent With Patient Total time spent is greater than 50% in coordination of care (as documented) at patient's floor/unit and/or counseling patient: 25 - 35 minutes - Subjective Interval history: still SOB, mild chest pain. doppler USG b/l extensive DVT, echo pending. denies fever, chills, N/V/D, abdomen pain, ADLER, dizzy, urine complain. frequent cough - Constitutional Vitals: Temp Pulse Resp BP Pulse Ox 98.3 F 106 20 120/80 98 04/08/18 11:17 04/08/18 11:17 04/08/18 11:17 04/08/18 11:17 04/08/18 11:17 General appearance: Present: mild distress, A&O X 3, answers questions appropriately Exam: General appearance: No acute distress, A&O X 3 Head exam: Atraumatic Eye exam: EOMI, PERRLA ENT exam: Moist oral mucosa Neck nontender, supple Respiratory exam: diminished BS bilaterally Cardiovascular exam: Regular rate and rhythm, no systolic murmur Abdominal exam: Soft, nontender, nondistended, positive bowel sounds Extremities exam: No calf tenderness, no pedal edema Present:peripheral pulses palpable, warm extremities Skin- dry, intact Neurological exam: Alert, awake, oriented 3, CN II-XII intact, no focal deficits. No facial droop. Normal speech. Internal Medicine: Result - Labs CBC & Chem 7: 04/08/18 05:21 04/08/18 03:22 Labs: Short CBC 04/08/18 Range/Units 05:21 WBC 16.6 H (4.3-11.1) K/mcL Hgb 14.5 (12.9-16.9) g/dL Hct 40.0 (37.5-50.1) % Plt Count 149 (140-400) K/mcL Neutrophils # 11.7 H (1.6-8.9) K/mcL BMP 04/08/18 03:22 Sodium 128 L Potassium 3.8 Chloride 98 Carbon Dioxide 22 L BUN 9 Creatinine 0.55 L Glucose 85 Calcium 8.2 L Cardiac Enzymes 04/08/18 04/08/18 Range/Units 03:22 07:47 Troponin I 0.05 H* 0.04 H* (< 0.04) ng/mL - ABG Interpretation ABG results: PT/INR, D-dimer PT 13.5 Seconds (9.4-12.1) H 04/07/18 22:59 D-Dimer 1705 ng/mLFEU (0-500) H 04/07/18 21:08 Consult Discharge Plan - Plan Referrals: Deborah Leos DO [Resident] - 04/15/18 5:00 pm
[2018-04-08] MEDS ORDERED: Albuterol 2.5 MG/3 ML NEBULIZER IH PRN (11:47)
[2018-04-08] MEDS: Metoprolol XL (24 HR) Succ 25 MG TAB.ER.24H PO SCH (13:03)
[2018-04-08] MEDS: Levofloxacin 750 MG/150 ML 750 MG/150 ML BAG IVPB SCH (13:03)
[2018-04-08] MEDS ORDERED: Isovue-370 500 ML INFUS..BTL IV ONE (13:49)
--- NOTE | 2018-04-08 14:05 | Oncology Inp Consult Note ---
<Oxana Burton L - Last Filed: 04/08/18 13:53> Date of Encounter: 04/08/18 Time of Encounter: 13:15 Assessment and Plan (1) Pulmonary emboli Status: Acute Assessment and plan: Chest CTA with contrast shows extensive pulmonary emboli throughout all lobes bilaterally and nonspecific ground-glass opacities. O2 sats WNL on room air. Tachycardia has improved since admission with HR 105- 110. Symptoms stabilized. Presents with sign of clinical RV strain with High BNP, Troponin leak, orthopnea , ECHO study was suboptimal but did not reveal any significant RV strain. Appreciate pulmonology/cardiology recommendations. Plan: Continue heparin gtt. Recommend Lovenox at discharge. Will arrange for follow up with Dr. Goodwin in about 7-14 days, further discussion on transitioning to oral AC to take place on an outpatient basis. Length of AC treatment is TBD dependant upon response to treatment but may be 6 months or greater. First unprovoked thrombotic event, no precipitating factor, high risk factors include smoking/obesity, but this would not explain his clot burden at his age. Initiated hypercoagulable workup with testing for antiphospholipid syndrome, if negative further workup to be considered on outpatient basis. Please see plan for DVT below. Qualifiers: Pulmonary embolism type: other Chronicity: unspecified Acute cor pulmonale presence: without acute cor pulmonale Qualified Code(s): I26.99 - Other pulmonary embolism without acute cor pulmonale (2) Hyponatremia Status: Acute Assessment and plan: Exact etiology unclear but suspect may be secondary to acute respiratory distress upon presentation versus SIADH Check urine osmalality, urine Na, urine creatinine. Serum osm low at 264. Glucose WNL. Improving since admission without any intervention therefore suspect this is secondary to his respiratory compromise (3) DVT (deep venous thrombosis) Status: Acute Assessment and plan: Preliminary venous doppler report reveals acute thrombosis in the right iliac through right tibial, right greater saphenous and lesser saphenous vein, left iliac through left tibial vein and left lesser saphenous vein. Not able to view past distal iliac vein on venous doppler so this is a suboptimal study to view extension into IVC. He currently denies LE pain, states edema has recently improved. Check CT abdomen/pelvis with IV contrast at 2300 tonight (timed to allow about 24 hour break from contrast load from CTA). If he has extension beyond distal iliac, may consider consult to vascular tomorrow for IVC filter placement. Please refer to Dr. Goodwin's attestation below for additional details. Qualifiers: DVT location: lower extremity Affected thrombotic vein of extremity: iliac Chronicity: acute Laterality: bilateral Qualified Code(s): I82.423 - Acute embolism and thrombosis of iliac vein, bilateral - Data of Consult Patient: new to practice Consult date: 04/08/18 Requesting Physician: Norma Schmitt MD Primary Care Provider: Tomy Campbell DO - Consult Narrative Reason for consult: Acute PE, Bilateral LE DVT History of present illness: Mr. Neumann is a 52 year old male with no prior medical history, presented to [facility] ER on 04/07/2018 with report of worsening SOB over the past 6 months and BLE edema that has waxed and waned over the past 3 months. His SOB has recently worsened to the point where he cannot walk 10-15 feet without having to rest, he reports chest pain, pleuritic pain with inspiration, pain with cough, weakness and fevers/chills. He denies hemoptysis. He is active in caring for his children and grandchildren, he is a single parent, he lost his , daughter and niece unexpectedly a couple of years ago. He was tachycardic upon presentation to the ER with HR 132. Initial lab workup significant for d-dimer 1705, troponin 0.05, BNP 246. Chest CTA with contrast shows extensive pulmonary emboli throughout all lobes bilaterally and nonspecific ground-glass opacities. He was admitted on a heparin gtt. Preliminary venous doppler report reveals acute thrombosis in the right iliac through right tibial, right greater saphenous and lesser saphenous vein, left iliac through left tibial vein and left lesser saphenous vein. He currently denies LE pain, states edema has recently improved. He denies any prior history of DVT/PE. He denies a family history of DVT/MD. He denies personal or family history of cancer. He denies any recent procedure/ surgical intervention, travel or injury. Risk factors for DVT/PE include current every day smoker and obesity, however risk factors do not explain his degree of clot burden at his age. Past Med Surg Social Fam HX - Past Medical History Medical history: GERD Psychiatric history: anxiety - Past Surgical History Additional surgical history: Jaw sx - Social History Smoking Status: Current every day smoker Packs per day: 1 Smokeless Tobacco Status: No Alcohol use: occasionally Drug use: none - Family History Mother Living Status: Hx Family Cardiac Disorders: Yes (VT, stroke) Father Hx Family Cardiac Disorders: Yes (HTN) Medications and Allergies No Known Home Drugs 04/08/18 [History] 3 Allergy/AdvReac Type Severity Reaction Status Date / Time Penicillins Allergy Vomiting Verified 04/08/18 08:45 Sulfa (Sulfonamide Allergy Nausea Verified 04/08/18 08:45 Antibiotics) Constitutional: Present: anorexia, chills, fatigue, fever(s), weakness, weight loss Eyes: Absent: change in vision Nose, mouth and throat: Absent: dysphagia Cardiovascular: Present: as per HPI, chest pain, dyspnea on exertion, lightheadedness Respiratory: Present: as per HPI, cough, dyspnea, pain on inspiration, chest congestion. Absent: hemoptysis Gastrointestinal: Absent: abdominal pain, hematemesis, hematochezia, melena, nausea, vomiting Additional comments: denies dysuria Musculoskeletal: Present: muscle weakness Integumentary: Absent: rash, wounds Neurological: Absent: focal weakness, frequent falls Psychiatric: Present: as per HPI Hematologic/Lymphatic: Present: as per HPI Oncology - Exam - Constitutional Vitals: Temp Pulse Resp BP Pulse Ox 98.3 F 106 20 120/80 98 04/08/18 11:17 04/08/18 11:17 04/08/18 11:17 04/08/18 11:17 04/08/18 11:17 General appearance: cooperative, no acute distress, no febrile - Head Head exam: Present: atraumatic - ENT ENT exam: Present: mucous membranes moist - Respiratory Respiratory exam: Present: wheezes. Absent: respiratory distress - Cardiovascular Cardiovascular exam: Present: RRR, +S1, +S2 Additional comments: HR 110 - GI/Abdominal GI/Abdominal exam: Present: normal bowel sounds, soft. Absent: guarding, rebound, tenderness - Extremities Exam Extremities exam: Present: pedal edema. Absent: calf tenderness - Neurological Exam Neurological exam: Present: alert, oriented X3, no focal deficits, strengths equal and symetr throughout - Psychiatric Psychiatric exam: Present: normal affect, normal mood - Skin Skin exam: Present: dry, intact, normal color, warm Consult Discharge Plan - Plan Referrals: Deborah Leos DO [Resident] - 04/15/18 5:00 pm <Martin Goodwin - Last Filed: 04/09/18 11:44> Date of Encounter: 04/08/18 - Data of Consult Requesting Physician: Norma Schmitt MD Primary Care Provider: Tomy Campbell DO - Consult Narrative History of present illness: Mr. Neumann is a 52 year old male Oncology - Exam - Constitutional Vitals: Temp Pulse Resp BP Pulse Ox 98.0 F 99 18 105/74 99 04/09/18 11:08 04/09/18 11:14 04/09/18 11:08 04/09/18 11:08 04/09/18 11:08 Oncology - Results Labs: 3 04/09/18 04/09/18 04/09/18 07:50 07:50 07:33 WBC 12.1 H RBC 3.70 L Hgb 13.1 Hct 36.9 L MCV 99.7 MCH 35.4 H MCHC 35.5 RDW 15.6 H Plt Count 159 MPV 10.1 Immature Gran % 2.3 Seg Neutrophils % 69.2 Lymphocytes % 14.6 Monocytes % 10.1 Eosinophils % 3.1 Basophils % 0.7 Neutrophils # 8.4 Lymphocytes # 1.8 Monocytes # 1.2 Eosinophils # 0.4 Basophils # 0.1 APTT 66.0 H Sodium 131 L Potassium 3.5 Chloride 100 Carbon Dioxide 24 BUN 7 Creatinine 0.50 L Est GFR ( Amer) > 60 Est GFR (Non-Af Amer) > 60 BUN/Creatinine Ratio 14 Glucose 114 H POC Glucose Serum Osmolality Calculated Osmolality 271 L Calcium 8.1 L Troponin I Triglycerides Cholesterol LDL Cholesterol, Calc VLDL Cholesterol, Calc HDL Cholesterol Cholesterol/HDL Ratio Urine Color Urine Clarity Urine pH Ur Specific [place] Urine Protein Urine Glucose (UA) Urine Ketones Urine Blood Urine Nitrite Urine Bilirubin Urine Urobilinogen Ur Leukocyte Esterase Urine Microscopic RBC Urine Microscopic WBC Ur Squamous Epith Cells Other Crystals Urine Bacteria Hyaline Casts Ur Culture Indicated? Urine Osmolality Urine Creatinine Urine Sodium 3 04/09/18 04/08/18 04/08/18 01:32 22:40 22:40 WBC RBC Hgb Hct MCV MCH MCHC RDW Plt Count MPV Immature Gran % Seg Neutrophils % Lymphocytes % Monocytes % Eosinophils % Basophils % Neutrophils # Lymphocytes # Monocytes # Eosinophils # Basophils # APTT 57.5 H Sodium Potassium Chloride Carbon Dioxide BUN Creatinine Est GFR ( Amer) Est GFR (Non-Af Amer) BUN/Creatinine Ratio Glucose POC Glucose Serum Osmolality Calculated Osmolality Calcium Troponin I Triglycerides Cholesterol LDL Cholesterol, Calc VLDL Cholesterol, Calc HDL Cholesterol Cholesterol/HDL Ratio Urine Color [place] A Urine Clarity Clear Urine pH 6.0 Ur Specific [place] 1.030 H Urine Protein Trace Urine Glucose (UA) Normal Urine Ketones 15 H Urine Blood Negative Urine Nitrite Positive A Urine Bilirubin Small H Urine Urobilinogen >=8.0 H Ur Leukocyte Esterase Trace H Urine Microscopic RBC 0-3 Urine Microscopic WBC 0-3 Ur Squamous Epith Cells Few Other Crystals Present Urine Bacteria None Seen Hyaline Casts None Seen Ur Culture Indicated? YES A Urine Osmolality Urine Creatinine 146 Urine Sodium 25.2 3 04/08/18 04/08/18 04/08/18 17:21 11:37 11:19 WBC RBC Hgb Hct MCV MCH MCHC RDW Plt Count MPV Immature Gran % Seg Neutrophils % Lymphocytes % Monocytes % Eosinophils % Basophils % Neutrophils # Lymphocytes # Monocytes # Eosinophils # Basophils # APTT 53.2 H 62.1 H Sodium Potassium Chloride Carbon Dioxide BUN Creatinine Est GFR ( Amer) Est GFR (Non-Af Amer) BUN/Creatinine Ratio Glucose POC Glucose 104 H Serum Osmolality Calculated Osmolality Calcium Troponin I Triglycerides Cholesterol LDL Cholesterol, Calc VLDL Cholesterol, Calc HDL Cholesterol Cholesterol/HDL Ratio Urine Color Urine Clarity Urine pH Ur Specific [place] Urine Protein Urine Glucose (UA) Urine Ketones Urine Blood Urine Nitrite Urine Bilirubin Urine Urobilinogen Ur Leukocyte Esterase Urine Microscopic RBC Urine Microscopic WBC Ur Squamous Epith Cells Other Crystals Urine Bacteria Hyaline Casts Ur Culture Indicated? Urine Osmolality Urine Creatinine Urine Sodium 3 04/08/18 04/08/18 04/08/18 11:00 07:47 07:47 WBC RBC Hgb Hct MCV MCH MCHC RDW Plt Count MPV Immature Gran % Seg Neutrophils % Lymphocytes % Monocytes % Eosinophils % Basophils % Neutrophils # Lymphocytes # Monocytes # Eosinophils # Basophils # APTT Sodium Potassium Chloride Carbon Dioxide BUN Creatinine Est GFR ( Amer) Est GFR (Non-Af Amer) BUN/Creatinine Ratio Glucose POC Glucose Serum Osmolality 270 L Calculated Osmolality Calcium Troponin I 0.04 H* Triglycerides Cholesterol LDL Cholesterol, Calc VLDL Cholesterol, Calc HDL Cholesterol Cholesterol/HDL Ratio Urine Color Urine Clarity Urine pH Ur Specific [place] Urine Protein Urine Glucose (UA) Urine Ketones Urine Blood Urine Nitrite Urine Bilirubin Urine Urobilinogen Ur Leukocyte Esterase Urine Microscopic RBC Urine Microscopic WBC Ur Squamous Epith Cells Other Crystals Urine Bacteria Hyaline Casts Ur Culture Indicated? Urine Osmolality 462 Urine Creatinine Urine Sodium 3 04/08/18 04/08/18 04/08/18 05:49 05:21 05:21 WBC 16.6 H RBC 3.98 L Hgb 14.5 Hct 40.0 MCV 100.5 H MCH 36.4 H MCHC 36.3 H RDW 15.4 H Plt Count 149 MPV 10.2 Immature Gran % 1.9 Seg Neutrophils % 70.4 Lymphocytes % 14.7 Monocytes % 8.6 Eosinophils % 3.9 Basophils % 0.5 Neutrophils # 11.7 H Lymphocytes # 2.5 Monocytes # 1.4 H Eosinophils # 0.7 H Basophils # 0.1 APTT Sodium Potassium Chloride Carbon Dioxide BUN Creatinine Est GFR ( Amer) Est GFR (Non-Af Amer) BUN/Creatinine Ratio Glucose POC Glucose 81 Serum Osmolality Calculated Osmolality Calcium Troponin I Triglycerides 97 Cholesterol 93 LDL Cholesterol, Calc 54 VLDL Cholesterol, Calc 19 HDL Cholesterol 20 L Cholesterol/HDL Ratio 4.7 Urine Color Urine Clarity Urine pH Ur Specific [place] Urine Protein Urine Glucose (UA) Urine Ketones Urine Blood Urine Nitrite Urine Bilirubin Urine Urobilinogen Ur Leukocyte Esterase Urine Microscopic RBC Urine Microscopic WBC Ur Squamous Epith Cells Other Crystals Urine Bacteria Hyaline Casts Ur Culture Indicated? Urine Osmolality Urine Creatinine Urine Sodium 3 04/08/18 04/08/18 04/08/18 05:21 03:22 03:22 WBC RBC Hgb Hct MCV MCH MCHC RDW Plt Count MPV Immature Gran % Seg Neutrophils % Lymphocytes % Monocytes % Eosinophils % Basophils % Neutrophils # Lymphocytes # Monocytes # Eosinophils # Basophils # APTT 54.9 H D Sodium 128 L Potassium 3.8 Chloride 98 Carbon Dioxide 22 L BUN 9 Creatinine 0.55 L Est GFR ( Amer) > 60 Est GFR (Non-Af Amer) > 60 BUN/Creatinine Ratio 16 Glucose 85 POC Glucose Serum Osmolality Calculated Osmolality 264 L Calcium 8.2 L Troponin I 0.05 H* Triglycerides Cholesterol LDL Cholesterol, Calc VLDL Cholesterol, Calc HDL Cholesterol Cholesterol/HDL Ratio Urine Color Urine Clarity Urine pH Ur Specific [place] Urine Protein Urine Glucose (UA) Urine Ketones Urine Blood Urine Nitrite Urine Bilirubin Urine Urobilinogen Ur Leukocyte Esterase Urine Microscopic RBC Urine Microscopic WBC Ur Squamous Epith Cells Other Crystals Urine Bacteria Hyaline Casts Ur Culture Indicated? Urine Osmolality Urine Creatinine Urine Sodium - Attending Attestation Seen and examined and patient and agree with assessment and plan. Patient has high burden of clot. Will get CT A/P to see if the patient may need filter. Fortunately, with the expeditious administration of heparin, the patient is doing better both symptomatically and objectively with improved oxygenation, improved gutierrez rate, nd improved respiratory rate. Will get antiphospholipid ab work/up [place]. 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 We will plan to discharge the patient with lovenox bid and then afterwards transition him to oral DOAC as outpatient.
--- NOTE | 2018-04-08 15:09 | Vascular/Endovasc Consult Note ---
Date of Encounter: 04/08/18 Time of Encounter: 12:30 Assessment and Plan (1) Pulmonary emboli Current Visit: Yes Status: Acute Multiple bilateral pulmonary emboli. Patient is on intravenous heparin. Patient has an O2 saturation during my exam of 92% on 2 L of nasal cannula. He does not demonstrate air hunger or dyspnea. His hemodynamics remained stable with the exception of sinus tachycardia. At this point I do not believe he needs lytic therapy for the pulmonary emboli. I discussed this in detail with the patient and explained that thrombin lysis may be necessary for his pulmonary emboli should he have any deterioration of his respiratory status. I also explained to him that at this point it is not necessary and intravenous heparin is sufficient as well as supplemental oxygen therapy and close observation in intermediate care unit. All questions were answered. Qualifiers: Pulmonary embolism type: other Chronicity: unspecified Acute cor pulmonale presence: without acute cor pulmonale Qualified Code(s): I26.99 - Other pulmonary embolism without acute cor pulmonale (2) Tobacco abuse Current Visit: Yes Status: Chronic Patient has a history of chronic tobacco abuse. (3) DVT (deep venous thrombosis) Current Visit: Yes Status: Acute Patient has bilateral ileal tibial DVT. The DVT is occlusive only at the left superficial femoral vein. The remaining areas of DVT and superficial thrombophlebitis are only partially occlusive. The patient has responded to bed rest and IV heparin with significant improvement of his lower extremity edema. Due to his pulmonary status I will not place him in a venous position with his knee and ankles higher than the level of his heart as I do not believe he will tolerate this position at this time. Patient will clearly need a minimum of 6- 12 months of anticoagulation as well as the use of lower extremity compression garments. I discussed with the patient the possible use of lytic therapy for lower extremity DVTs as well as the use of IVC filters. At this point the patient does not require either intervention as he is hemodynamically stable from a cardiopulmonary standpoint and are no findings of phlegmasia with normal lower extremity pulses and no lower extremity neurologic symptoms. Qualifiers: DVT location: lower extremity Affected thrombotic vein of extremity: iliac Chronicity: acute Laterality: bilateral Qualified Code(s): I82.423 - Acute embolism and thrombosis of iliac vein, bilateral - History of Present Illness Consult date: 04/08/18 Requesting physician: Lyly Jon Consult reason: Bilateral lower extremity DVT/bilateral pulmonary emboli Chief complaint: Shortness of breath History of present illness: Mr. Neumann is a 52 year old male Admitted yesterday via the ER for severe shortness of breath. The patient has shortness of breath on exertion and walking within the home. This is been a progressive problem for the patient. He has been short of breath for many months. Because of the worsening situation he came to the emergency room. He has multiple domestic duties and is caring for 6 grandchildren and he states that the childcare issues preventing him from seeking medical attention earlier. In addition to this long-standing shortness of breath he also been suffering from lower extremity swelling. The swelling has been ongoing as well for a number of months though worse over the past 2 months. He notes that the swelling is more pronounced on the right side than on the left. He describes a decrease in the swelling overnight and that his legs are more normal in the morning but as the day progresses the swelling worsens. He denies any history of trauma or previous DVT to the lower extremities or pelvis. On admission workup included a CT angiogram of the chest which revealed multiple bilateral pulmonary emboli. Patient was admitted and placed on intravenous heparin. Because of the multiple associated issues including elevated troponin other consultants have been involved which include cardiology and pulmonology. Heme on has also been asked to see the patient. This morning the patient had a bilateral lower extremity venous duplex scan. This demonstrated diffuse bilateral ilial tibial DVTs that are acute. Vascular surgery was asked to make comment on these issues. It should be noted that the patient states his lower extremity swelling is dramatically improved today and that with the exception of mild swelling around his ankles he feels his legs are back to normal and both their appearance and diameter. The patient does have a chronic complaint of sinus drainage. He has a nonproductive cough and states that the drainage from the sinuses have led to this persistent cough which he demonstrates while I am in the room with him today. Past Med Surg Social Fam HX - Past Medical History Medical history: GERD Psychiatric history: anxiety - Past Surgical History Additional surgical history: Jaw sx - Social History Smoking Status: Current every day smoker Packs per day: 1 Smokeless Tobacco Status: No Alcohol use: occasionally Drug use: none - Family History Mother Living Status: Hx Family Cardiac Disorders: Yes (VT, stroke) Father Hx Family Cardiac Disorders: Yes (HTN) Medications and Allergies No Known Home Drugs 04/08/18 [History] 3 Allergy/AdvReac Type Severity Reaction Status Date / Time Penicillins Allergy Vomiting Verified 04/08/18 08:45 Sulfa (Sulfonamide Allergy Nausea Verified 04/08/18 08:45 Antibiotics) All Systems Review: The remainder of the systems were reviewed and are negative Exam Vital Signs, Last 4 Hours Temp Pulse Resp BP Pulse Ox 04/08/18 11:17 98.3 F 106 20 120/80 98 General: Present: Conversant, No Apparent Distress, Well developed, Well nourished HEENT: Present: Atraumatic, Normocephaly, Trachea midline, Pupils equal Neck: Absent: JVD, Lymphadenopathy, Left Carotid bruit, Right Carotid bruit, Midline deformity, Tracheal deviation Cardiac: Present: Reg Rate and Rhythm, Normal S1 and S2, Other (Patient demonstrates sinus tachycardia) Lungs: Present: Decreased breath sounds, No Wheeze, Rales, Rhonchi Neuro: Present: Alert and responsive, No focal deficits noted, Cranial nerves grossly intact Abdomen: Present: Soft, Non-tender, Other (Obese). Absent: Masses Vascular: Present: Normal capillary refill, Edema (Mild and nonpitting edema of the ankle and feet bilaterally), Color/Temperature (Normal color and temperature of feet and legs bilaterally), Other (No findings to suggest phlegmasia. No findings of stasis dermatitis. No findings of hyperpigmentation) . Absent: Bruit, Clubbing, Cyanosis, Surgical incisions, Amputation(s) Skin: Absent: No rashes noted on visualized skin, Wound/ulcer(s) Consult Discharge Plan - Plan Referrals: Deborah Leos DO [Resident] - 04/15/18 5:00 pm
--- NOTE | 2018-04-08 16:26 | Electrocardiograph Report ---
[address] [place], [place] [address] Test Date: 2018-04-07 Pat Name: Ced Neumann Department: 104 Room: 2N09 Gender: M [employer]: BIANCA : 1965 Requested By: Glenny Woodward Order Number: [id number] Reading MD: Laura Alejandro Measurements Intervals Donie Rate: 121 P: 59 NV: 138 QRS: 1 QRSD: 84 T: 49 QT: 335 QTc: 407 Interpretive Statements SINUS TACHYCARDIA MODERATE T-WAVE ABNORMALITY, CONSIDER ANTERIOR ISCHEMIA LOW VOLTAGE PRECORDIAL LEADS Electronically Signed On 04-08-2018 16:25:17 EDT by Laura Alejandro
[2018-04-08] MEDS: Heparin 25,000 UNIT/500 ML D5W 25,000 UNIT/500 ML BAG IVC SCH (18:24)
[2018-04-08 22:51] LABS: Bilirubin,Urine Small (Negative); Blood,Urine Negative (Negative); Clarity,Urine Clear (Clear); Color,Urine Orange (Yellow); Glucose,Urine (UA) Normal (Normal); Ketones,Urine 15 mg/dL (Negative); Leukocyte Esterase,Urine Trace (Negative); Nitrite,Urine Positive (Negative); Protein,Urine Trace mg/dL (Neg-Trace); Urobilinogen,Urine >=8.0 mg/dL (Normal)
[2018-04-08 22:53] LABS: Bacteria,Urine None Seen per hpf (None-Few); Hyaline Casts,Urine None Seen per lpf (None-Few); RBC,Urine 0-3 per hpf (0-3); Squamous Epithelial Cell,Urine Few per lpf (None-Few); WBC,Urine 0-3 per hpf (0-3)
[2018-04-08 23:14] LABS: Sodium, Urine 25.2 mEq/L
[2018-04-09] MEDS: Metoprolol XL (24 HR) Succ 25 MG TAB.ER.24H PO SCH (07:43)
[2018-04-09] MEDS: Aspirin Enteric Coated 81 MG Tablet PO SCH (07:43)
[2018-04-09 08:02] LABS: Basophils # 0.1 K/mcL (0.0-0.2); Basophils % 0.7 %; Eosinophils # 0.4 K/mcL (0.0-0.6); Eosinophils % 3.1 %; Hematocrit 36.9 % (37.5-50.1); Hemoglobin 13.1 g/dL (12.9-16.9); Immature Granulocytes % 2.3 % (0-4); Lymphocytes # 1.8 K/mcL (0.6-4.6); Lymphocytes % 14.6 %; Mean Corpuscular HGB Conc 35.5 g/dL (31.6-35.5); Mean Corpuscular Hemoglobin 35.4 pg (28.0-33.3); Mean Corpuscular Volume 99.7 fL (83.0-100.0); Mean Platelet Volume 10.1 fL (9.4-12.4); Monocytes # 1.2 K/mcL (0.0-1.3); Monocytes % 10.1 %; Neutrophils # 8.4 K/mcL (1.6-8.9); Platelet Count 159 K/mcL (140-400); Red Cell Distribution Width 15.6 % (11.5-14.5); Segmented Neutrophils % 69.2 %
[2018-04-09 08:21] LABS: BUN/Creatinine Ratio 14 (6-26); Blood Urea Nitrogen 7 mg/dL (6-20); Calcium 8.1 mg/dL (8.6-10.3); Carbon Dioxide 24 mEq/L (23-29); Chloride 100 mEq/L (98-107); Glucose 114 mg/dL (70-105); Osmolality,Calculated 271 (280-300); Potassium 3.5 mEq/L (3.5-5.1); Sodium 131 mEq/L (136-145); eGFR For African Americans > 60 (> 60); eGFR For Non-African Americans > 60 (> 60)
[2018-04-09] MEDS: Heparin 25,000 UNIT/500 ML D5W 25,000 UNIT/500 ML BAG IVC SCH (09:40)
[2018-04-09] MEDS: Levofloxacin 750 MG/150 ML 750 MG/150 ML BAG IVPB SCH (11:06)
--- NOTE | 2018-04-09 11:48 | Internal Med Progress Note ---
Date of Encounter: 04/09/18 Time of Encounter: 11:39 - Assessment and plan (1) Pulmonary embolism, bilateral Current Visit: Yes Status: Acute Assessment and plan: Newly diagnosed bilateral PE. Hemodynamically stable. Echocardiogram revealed with preserved LV function but slight decreased right ventricular function. Continue Heparin drip. Pulmonologists field trainer, and needle bar molder consulted. As this is unprovoked DVT with PE therefore field trainer on board and extensive GERD workup ordered. Malignancy workup and serum marker such as PSA, CA 19 etc. can be considered as per field trainer advise-I already talked to oncology team and will let them decide. Plan to discharge patient on Lovenox with close follow-up with field trainer once symptoms improve (2) DVT (deep venous thrombosis) Current Visit: Yes Status: Acute Assessment and plan: New onset. The bilateral lower extremity extensive clot burden. CT abdomen and pelvis done and reviewed. On board vascular surgeon for further recommendation. Continue heparin drip for now. Qualifiers: DVT location: lower extremity Affected thrombotic vein of extremity: iliac Chronicity: acute Laterality: bilateral Qualified Code(s): I82.423 - Acute embolism and thrombosis of iliac vein, bilateral (3) Elevated troponin Current Visit: Yes Status: Acute Assessment and plan: Contracts Paralegal's on board and does not suspect NST TN but demand ischemia related to above. Started aspirin and beta silvina. Echo reviewed. (4) Leukocytosis Current Visit: Yes Status: Acute Assessment and plan: Trending down. Could be reactionary response due to acute illness. Chest x- ray with No obvious infiltrate. But will cover patient for possible underlying pneumonia in context of present scenario Qualifiers: Leukocytosis type: unspecified Qualified Code(s): D72.829 - Elevated white blood cell count, unspecified (5) Pulmonary edema Current Visit: Yes Status: Acute Assessment and plan: Raised BNP in the setting of PE. Chest CT with groundglass opacity possible pulmonary edema. Continue strict I&O's. Reviewed echocardiogram report with preserved LV function. No IV fluid. IV diuretics as needed if symptomatic Qualifiers: Chronicity: acute Qualified Code(s): J81.0 - Acute pulmonary edema (6) DVT prophylaxis Current Visit: Yes Status: Acute Assessment and plan: CONTINUE HEPARIIN DRIP - Time Spent With Patient Total time spent is greater than 50% in coordination of care (as documented) at patient's floor/unit and/or counseling patient: 25 - 35 minutes - Subjective Interval history: Better shortness of breath and cough but this still had chest pain on coughing. denies fever, chills, N/V/D, abdomen pain, ADLER, dizzy, urine complain. frequent cough-better - Constitutional Vitals: Temp Pulse Resp BP Pulse Ox 98.0 F 99 18 105/74 99 04/09/18 11:08 04/09/18 11:14 04/09/18 11:08 04/09/18 11:08 04/09/18 11:08 General appearance: Present: mild distress, A&O X 3, answers questions appropriately Exam: General appearance: No acute distress, A&O X 3 Head exam: Atraumatic Eye exam: EOMI, PERRLA ENT exam: Moist oral mucosa Neck nontender, supple Respiratory exam: diminished BS bilaterally Cardiovascular exam: Regular rate and rhythm, no systolic murmur Abdominal exam: Soft, nontender, nondistended, positive bowel sounds Extremities exam: no pedal edema Present:peripheral pulses palpable, warm extremities Skin- dry, intact Neurological exam: Alert, awake, oriented 3, CN II-XII intact, no focal deficits. No facial droop. Normal speech. Internal Medicine: Result - Labs CBC & Chem 7: 04/09/18 07:50 04/09/18 07:50 Labs: Short CBC 04/09/18 Range/Units 07:50 WBC 12.1 H (4.3-11.1) K/mcL Hgb 13.1 (12.9-16.9) g/dL Hct 36.9 L (37.5-50.1) % Plt Count 159 (140-400) K/mcL Neutrophils # 8.4 (1.6-8.9) K/mcL BMP 04/09/18 07:50 Sodium 131 L Potassium 3.5 Chloride 100 Carbon Dioxide 24 BUN 7 Creatinine 0.50 L Glucose 114 H Calcium 8.1 L Urine 04/08/18 Range/Units 22:40 Urine Color [place] A (Yellow) Urine Clarity Clear (Clear) Urine pH 6.0 (5.0-8.0) pH Units Ur Specific [place] 1.030 H (1.010-1.025) Urine Protein Trace (Neg-Trace) mg/dL Urine Glucose (UA) Normal (Normal) mg/dL - ABG Interpretation ABG results: PT/INR, D-dimer PT 13.5 Seconds (9.4-12.1) H 04/07/18 22:59 D-Dimer 1705 ng/mLFEU (0-500) H 04/07/18 21:08 - Impressions Impressions Echocardiogram 04/08/18 07:00 Impressions: Technically challenging due to body habitus. Sinus tachycardia. LVEF 65-70%. Indeterminate diastolic function. Atypical septal motion. RV size is not optimally visualized. Function appears mildly reduced by Doppler but visualization is limited. No significant valvular dysfunction. No significant TR signal to estimate RVSP. IVC is not dilated and demonstrates normal respiratory collapse. Left Ventricular Wall Motion: Rest Echo Findings All wall segments showed normal motion. Findings: Study Quality * Technically challenging due to body habitus. ECG Findings * Sinus tachycardia. Left Ventricle * LVEF 65-70%. * Indeterminate diastolic function. * LV chamber size and wall thickness appear normal. * Atypical septal motion. Right Ventricle * RV size is not optimally visualized. Function appears mildly reduced by Doppler but visualization is limited. Left Atrium * Normal left atrial size. Right Atrium * Normal right atrial size. Aortic Valve * No aortic regurgitation. * Aortic valve not well visualized. * No aortic stenosis. Mitral Valve * Normal mitral valve structure. * No mitral regurgitation. * No mitral stenosis. Tricuspid Valve * Normal tricuspid valve structure. * Trace tricuspid regurgitation. * Estimated RA pressure is 3 mmHg. Pulmonic Valve * Pulmonic valve is not well visualized. * No pulmonic stenosis. * No pulmonic regurgitation. Pulmonary Artery * Pulmonary artery not well visualized. Aorta * Normally sized aortic root. Pericardium * There is no pericardial effusion present. Interatrial Septum * No evidence of PFO by color Doppler. IVC * Normal IVC dimensions and inspiratory collapse. Abdomen/Pelvis CT 04/08/18 23:00 IMPRESSION: 1. Bilateral DVT involving the bilateral superficial femoral veins and on the left the common femoral vein. There is no extension into the external iliac veins. 2. Pancolonic diverticulosis with sigmoid colon wall thickening which could either indicate sequelae of chronic diverticular disease or colon cancer. D/ / Howie Alvarez MD / Howie Alvarez MD Interpreting Provider: Howie Alvarez MD Consult Discharge Plan - Plan Referrals: Deborah Leos DO [Resident] - 04/15/18 5:00 pm
--- NOTE | 2018-04-09 12:43 | Oncology Inp Progress Note ---
Date of Encounter: 04/09/18 Time of Encounter: 11:30 (1) Pulmonary emboli Current Visit: Yes Status: Acute Assessment and plan: Chest CTA with contrast shows extensive pulmonary emboli throughout all lobes bilaterally and nonspecific ground-glass opacities. Hemodynamically stable, tachycardia now resolved on assessment, HR currently around 95 while at rest. Presents with sign of clinical RV strain with High BNP, Troponin leak, orthopnea , ECHO study was suboptimal but did not reveal any significant RV strain. Appreciate pulmonology/cardiology/vascular recommendations. Plan: Continue heparin gtt. Recommend Lovenox at discharge at 1 mg/kg/dose every 12 hours. He was given a follow up today with Dr. Forbes next week. Will plan to transition to a DOAC on an outpatient basis. Length of AC treatment is TBD dependant upon response to treatment but may be 6 months or likely longer. First unprovoked thrombotic event, no precipitating factor, high risk factors include smoking/obesity. Initiated hypercoagulable workup with testing for antiphospholipid syndrome, if negative further workup to be considered on outpatient basis. Suspect an acquired thrombophilia given his negative family history. Encouraged ambulation as tolerated. Spot check O2 sats on room air and wean if able/tolerated. Once we monitor him as he increases his activity level, his symptoms remain stable or improve and if he continues to remain hemodynamically stable, he may likely discharge home in the next 24 hours. Please see plan for DVT below. Qualifiers: Pulmonary embolism type: other Chronicity: unspecified Acute cor pulmonale presence: without acute cor pulmonale Qualified Code(s): I26.99 - Other pulmonary embolism without acute cor pulmonale (2) Hyponatremia Current Visit: Yes Status: Acute Assessment and plan: Improving since admission without any intervention therefore suspect this is secondary to his respiratory compromise (3) DVT (deep venous thrombosis) Current Visit: Yes Status: Acute Assessment and plan: Venous doppler report reveals acute thrombosis in the right iliac through right tibial, right greater saphenous and lesser saphenous vein, left iliac through left tibial vein and left lesser saphenous vein. Not able to view past distal iliac vein on venous doppler so this is a suboptimal study to view for any further extension. CT abdomen/pelvis today reveals bilateral DVT involving the bilateral superficial femoral veins and on the left the common femoral vein. There is no extension into the external iliac veins. Along with noted pancolonic diverticulosis with sigmoid colon wall thickening. Reviewed vascular's consult note, agree no role for intervention needed at this time. Responding well to IV heparin. See above for full plan for anticoagulation recommendations. The plan as above was discussed with Dr. Goodwin. Qualifiers: DVT location: lower extremity Affected thrombotic vein of extremity: iliac Chronicity: acute Laterality: bilateral Qualified Code(s): I82.423 - Acute embolism and thrombosis of iliac vein, bilateral (4) Leukocytosis Current Visit: Yes Status: Acute Assessment and plan: Improving. On Levaquin IV per pulmonollgy recommendations. Urine culture pending. Qualifiers: Leukocytosis type: unspecified Qualified Code(s): D72.829 - Elevated white blood cell count, unspecified (5) Colonic thickening Current Visit: Yes Status: Acute Assessment and plan: Noted on CT abdomen/pelvis. He had a CT abdomen/pelvis from 09/2016 which does reveal findings concerning for sigmoid diverticulosis/early diverticulitis. He does report crampy, intermittent abdominal pain from time to time, denies hematochezia, melena, no evidence of acute abdomen. Currently denies abdominal pain. Recommend GI consultation on an outpatient basis for screening colonoscopy, he denies prior colonoscopy evaluation. No role for tumor marker workup at this time. Oncology: Subj Interval history: Mr. Neumann is resting in bed. He reports his chest pain/pleuritic pain and coughing has improved since his last assessment. His HR is currently below 100, he is hemodynamically stable. He continues to report nasal drainage, will start claritin. He currently denies LE pain, states edema has recently improved, denies numbness/tingling. Communication order placed to ambulate patient as tolerated and assess O2 need as he is sating well on O2 at 2L. - Constitutional Vitals: Vital Signs Temp Pulse Resp BP Pulse Ox 04/09/18 11:14 99 04/09/18 11:08 98.0 F 92 18 105/74 99 04/09/18 07:48 96 04/09/18 07:31 97.8 F 94 18 111/77 96 04/09/18 03:09 97.6 F 101 18 101/80 97 04/09/18 00:18 98 F 104 18 108/86 100 04/08/18 19:18 98.5 F 109 19 101/71 98 06/25/18 16:27 98.5 F 103 20 107/67 99 Intake and Output 04/08/18 04/09/18 04/09/18 23:59 07:59 15:59 Intake Total 410 / 410 150 / 150 840 / 840 Output Total 375 / 375 Balance 410 / 410 150 / 150 465 / 465 Intake: IV Fluids 170 / 170 150 / 150 480 / 480 Heparin 25,000 UNIT/500 ML D5W 170 / 170 480 / 480 25,000 unit In 500 ml @ 14 UNIT /KG/HR 25.401 mls/hr IVC . [id number] [facility] Rx#:[id number] Levaquin Premix 750mg/150 mL 150 / 150 750 mg In 150 ml @ 100 mls/hr IVPB Q24H [facility] Rx#:[id number] Oral 240 / 240 360 / 360 Output: Urine 375 / 375 Other: Meal Dinner Breakfast Percent of Meal Consumed 65% 100% Weight 88.9 kg Patient Weight 04/09/18 23:59 Weight 88.9 kg General appearance: cooperative, no acute distress, no febrile - Head Head exam: Present: atraumatic - ENT ENT exam: Present: mucous membranes moist - Respiratory Respiratory exam: Present: CTAB. Absent: respiratory distress - Cardiovascular Cardiovascular exam: Present: RRR, +S1, +S2 - GI/Abdominal GI/Abdominal exam: Present: normal bowel sounds, soft. Absent: guarding, rebound, tenderness - Extremities Exam Extremities exam: Present: pedal edema. Absent: calf tenderness - Neurological Exam Neurological exam: Present: alert, oriented X3, no focal deficits, strengths equal and symetr throughout - Psychiatric Psychiatric exam: Present: normal affect, normal mood - Skin Skin exam: Present: dry, intact, normal color, warm Oncology: Obj Data - Labs CBC & Chem 7: 04/09/18 07:50 04/09/18 07:50 - Impressions Impressions Abdomen/Pelvis CT 04/08/18 23:00 IMPRESSION: 1. Bilateral DVT involving the bilateral superficial femoral veins and on the left the common femoral vein. There is no extension into the external iliac veins. 2. Pancolonic diverticulosis with sigmoid colon wall thickening which could either indicate sequelae of chronic diverticular disease or colon cancer. D/ / Howie Alvarez MD / Howie Alvarez MD Interpreting Provider: Howie Alvarez MD - ABG Interpretation ABG results: PT/INR, D-dimer PT 13.5 Seconds (9.4-12.1) H 04/07/18 22:59 D-Dimer 1705 ng/mLFEU (0-500) H 04/07/18 21:08 Consult Discharge Plan - Plan Referrals: Deborah Leos DO [Resident] - 04/15/18 5:00 pm
[2018-04-09] MEDS: Fluticasone Propionate Nasal 50 MCG/SPRAY BOTTLE NS SCH (15:34)
[2018-04-09] MEDS: Loratadine 10 MG TABLET PO SCH (15:34)
--- NOTE | 2018-04-09 20:55 | Pulmonology Progress Note ---
Date of Encounter: 04/09/18 Time of Encounter: 10:00 Assessment and Plan (1) Acute respiratory failure with hypoxia Current Visit: Yes Status: Acute Secondary to V/Q mismatch due to Pulmonary embolism and Diastolic dysfunction . (2) Pulmonary embolism, bilateral Current Visit: Yes Status: Acute To continue Heparin to [place] Lovenox . Oncology doing the hypercoagulable work up and malignancy work up. Patient can follow up with Outpatient Pulmonology for evaluation of undiagnosed obstructive lung disease . Patient is a chronic smoker counseled about smoking cessation (3) Pulmonary edema Current Visit: Yes Status: Acute To continue diuresis as tolerated Qualifiers: Chronicity: acute Qualified Code(s): J81.0 - Acute pulmonary edema (4) Elevated brain natriuretic peptide (BNP) level Current Visit: Yes Status: Acute Consistent with diastolic dysfunction Subjective Principal diagnosis: Bilateral Pulmonary Embolism . Interval history: Patient says his shortness of breadth is lot better , cough is associated with some pleuritic chest pain , not much Orthopnea or PND . Objective PUL Vital signs: Last Vital Signs Temp 98.9 F 04/09/18 18:37 Pulse 106 04/09/18 18:37 Resp 18 04/09/18 18:37 BP 99/69 04/09/18 18:37 Pulse Ox 98 04/09/18 18:37 Auscultation: bilateral: diminished breath sounds (Bilateral bibasilar ) Results - Laboratory Findings CBC and BMP: 04/09/18 07:50 04/09/18 07:50 PT/INR, D-dimer PT 13.5 Seconds (9.4-12.1) H 04/07/18 22:59 D-Dimer 1705 ng/mLFEU (0-500) H 04/07/18 21:08 Abnormal lab findings: Abnormal lab results WBC 12.1 K/mcL (4.3-11.1) H 04/09/18 07:50 RBC 3.70 M/mcL (4.19-5.50) L 04/09/18 07:50 Hct 36.9 % (37.5-50.1) L 04/09/18 07:50 MCH 35.4 pg (28.0-33.3) H 04/09/18 07:50 RDW 15.6 % (11.5-14.5) H 04/09/18 07:50 Nucleated RBCs/100 WBC 0.1 /100 WBC (0) H 04/07/18 21:08 PT 13.5 Seconds (9.4-12.1) H 04/07/18 22:59 APTT 66.9 Seconds (26.0-36.0) H 04/09/18 16:23 D-Dimer 1705 ng/mLFEU (0-500) H 04/07/18 21:08 Sodium 131 mEq/L (136-145) L 04/09/18 07:50 Creatinine 0.50 mg/dL (0.70-1.30) L 04/09/18 07:50 Glucose 114 mg/dL (70-105) H 04/09/18 07:50 POC Glucose 104 mg/dL (70-99) H 04/08/18 11:19 Serum Osmolality 270 mOsm/kg (280-300) L 04/08/18 07:47 Calculated Osmolality 271 (280-300) L 04/09/18 07:50 Calcium 8.1 mg/dL (8.6-10.3) L 04/09/18 07:50 Troponin I 0.04 ng/mL (< 0.04) H* 04/08/18 07:47 B-Natriuretic Peptide 246 pg/mL (Less than 100) H 04/07/18 21:08 HDL Cholesterol 20 mg/dL (40-59) L 04/08/18 05:21 Urine Color [place] (Yellow) A 04/08/18 22:40 Ur Specific [place] 1.030 (1.010-1.025) H 04/08/18 22:40 Urine Ketones 15 mg/dL (Negative) H 04/08/18 22:40 Urine Nitrite Positive (Negative) A 04/08/18 22:40 Urine Bilirubin Small (Negative) H 04/08/18 22:40 Urine Urobilinogen >=8.0 mg/dL (Normal) H 04/08/18 22:40 Ur Leukocyte Esterase Trace (Negative) H 04/08/18 22:40 Ur Culture Indicated? YES (NO) A 04/08/18 22:40 - Clinical Findings Intake & Output: Intake & Output 04/09/18 04/09/18 04/09/18 07:59 15:59 23:59 Intake Total 150 / 150 990 / 990 410 / 410 Output Total 375 / 375 Balance 150 / 150 615 / 615 410 / 410 Weight 88.9 kg Consult Discharge Plan - Plan Referrals: Deborah Leos DO [Resident] - 04/15/18 5:00 pm
--- NOTE | 2018-04-09 21:15 | Vascular/[facility] Progress Note ---
Date of Encounter: 04/09/18 Time of Encounter: 21:12 - Assessment and plan (1) Pulmonary emboli Current Visit: Yes Status: Acute Multiple bilateral pulmonary emboli. Patient is on intravenous heparin. Patient' s pulmonary status remained stable. No thrombolytic intervention is anticipated. Qualifiers: Pulmonary embolism type: other Chronicity: unspecified Acute cor pulmonale presence: without acute cor pulmonale Qualified Code(s): I26.99 - Other pulmonary embolism without acute cor pulmonale (2) Tobacco abuse Current Visit: Yes Status: Chronic Patient has a history of chronic tobacco abuse. (3) DVT (deep venous thrombosis) Current Visit: Yes Status: Acute Bilateral lower extremity DVT. Lower extremity physical exam is unchanged from yesterday. No signs of phlegmasia. At this point I will sign off of the case. Please reconsult when necessary. I will leave a prescription for knee-high compression stockings on the patient' s discharge folder for was reviewed with the patient today. Qualifiers: DVT location: lower extremity Affected thrombotic vein of extremity: iliac Chronicity: acute Laterality: bilateral Qualified Code(s): I82.423 - Acute embolism and thrombosis of iliac vein, bilateral - Subjective Interval history: Patient is now on 2 N. He states his overall status is about the same. He does have some discomfort in his lower extremities from the knee to the top of his feet. He states his breathing is intermittently better and sometimes more comfortable. Workup to this point has revealed no involvement of the inferior vena cava by CT scanning. Hemodynamics remained stable. Patient remains on intravenous heparin drip. Vital Signs, Last 4 Hours Temp Pulse Resp BP Pulse Ox 04/09/18 18:37 98.9 F 106 18 99/69 98 - Physical Examination General: Present: Conversant, No Apparent Distress, Well developed HEENT: Present: Atraumatic Neck: Absent: JVD Cardiac: Present: Reg Rate and Rhythm Neuro: Present: Alert and responsive, No focal deficits noted, Cranial nerves grossly intact Vascular: Present: Color/Temperature (Lower extremities remain warm and pink. There are no signs of phlegmasia. There were no ulcerations or discoloration or bleb formation.) Results 04/09/18 07:50 04/09/18 07:50 Lab Results, Last 24 hours 04/09/18 04/09/18 04/09/18 01:32 07:33 07:50 WBC 12.1 H Hgb 13.1 Hct 36.9 L Plt Count 159 APTT 57.5 H 66.0 H Sodium Potassium Chloride Carbon Dioxide BUN Creatinine Glucose Calcium 04/09/18 04/09/18 07:50 16:23 WBC Hgb Hct Plt Count APTT 66.9 H Sodium 131 L Potassium 3.5 Chloride 100 Carbon Dioxide 24 BUN 7 Creatinine 0.50 L Glucose 114 H Calcium 8.1 L Consult Discharge Plan - Plan Referrals: Deborah Leos DO [Resident] - 04/15/18 5:00 pm
[2018-04-10] MEDS: Heparin 25,000 UNIT/500 ML D5W 25,000 UNIT/500 ML BAG IVC SCH ×2 (01:28→18:17)
[2018-04-10 05:03] LABS: Basophils # 0.1 K/mcL (0.0-0.2); Basophils % 0.8 %; Eosinophils # 0.4 K/mcL (0.0-0.6); Eosinophils % 4.1 %; Hematocrit 36.3 % (37.5-50.1); Hemoglobin 13.1 g/dL (12.9-16.9); Immature Granulocytes % 3.1 % (0-4); Lymphocytes # 2.1 K/mcL (0.6-4.6); Lymphocytes % 20.7 %; Mean Corpuscular HGB Conc 36.1 g/dL (31.6-35.5); Mean Corpuscular Hemoglobin 36.9 pg (28.0-33.3); Mean Corpuscular Volume 102.3 fL (83.0-100.0); Monocytes # 1.1 K/mcL (0.0-1.3); Monocytes % 11.2 %; Platelet Count 171 K/mcL (140-400); Red Blood Count 3.55 M/mcL (4.19-5.50); Red Cell Distribution Width 15.4 % (11.5-14.5); Segmented Neutrophils % 60.1 %
[2018-04-10 05:27] LABS: BUN/Creatinine Ratio 13 (6-26); Blood Urea Nitrogen 7 mg/dL (6-20); Calcium 7.9 mg/dL (8.6-10.3); Carbon Dioxide 25 mEq/L (23-29); Chloride 102 mEq/L (98-107); Glucose 111 mg/dL (70-105); Osmolality,Calculated 275 (280-300); Potassium 3.3 mEq/L (3.5-5.1); Sodium 133 mEq/L (136-145); eGFR For African Americans > 60 (> 60); eGFR For Non-African Americans > 60 (> 60)
[2018-04-10] MEDS: Metoprolol XL (24 HR) Succ 25 MG TAB.ER.24H PO SCH (08:13)
[2018-04-10] MEDS: Aspirin Enteric Coated 81 MG Tablet PO SCH (08:13)
[2018-04-10] MEDS: Loratadine 10 MG TABLET PO SCH (08:13)
[2018-04-10] MEDS: Fluticasone Propionate Nasal 50 MCG/SPRAY BOTTLE NS SCH (08:14)
[2018-04-10] MEDS: Levofloxacin 750 MG/150 ML 750 MG/150 ML BAG IVPB SCH (11:21)
--- NOTE | 2018-04-10 12:49 | Oncology Inp Progress Note ---
Date of Encounter: 04/10/18 Time of Encounter: 12:20 (1) Pulmonary emboli Current Visit: Yes Status: Acute Assessment and plan: He continues to be hemodynamically stable. Cough, SOB, pleuritic pain and orthopnea symptoms have improved since admission. Evaluated by vascular-no intervention indicated at this time Currently on heparin gtt. Recommend transition to Lovenox at discharge at 1 mg/ kg/dose every 12 hours per hospitalist team. He is scheduled to see Dr. Forbes next week as an outpatient. Will plan to transition to a DOAC on an outpatient basis. Length of AC treatment is TBD dependant upon response to treatment but may be 6 months or longer. First unprovoked thrombotic event, no precipitating factor, high risk factors include smoking/obesity. Initiated hypercoagulable workup with testing for antiphospholipid syndrome. Suspect an acquired thrombophilia given his negative family history. Lab pending. Encouraged ambulation as tolerated. Spot check O2 sats on room air and wean if able/tolerated. He is weaned down to 1L O2, may likely wean completely. Encouraged continued activity as tolerated. Hematology at this time will sign off, patient will plan to follow up as outpatient, expect discharge soon when cleared per primary hospitalist team. Please do not hesitate to contact with any other questions or concerns. Please see plan for DVT below. Qualifiers: Pulmonary embolism type: other Chronicity: unspecified Acute cor pulmonale presence: without acute cor pulmonale Qualified Code(s): I26.99 - Other pulmonary embolism without acute cor pulmonale (2) Hyponatremia Current Visit: Yes Status: Acute Assessment and plan: Improving since admission without any specific intervention therefore suspect this is secondary to his respiratory distress upon his presentation (3) DVT (deep venous thrombosis) Current Visit: Yes Status: Acute Assessment and plan: Venous doppler report reveals acute thrombosis in the right iliac through right tibial, right greater saphenous and lesser saphenous vein, left iliac through left tibial vein and left lesser saphenous vein. Not able to view past distal iliac vein on venous doppler so this is a suboptimal study to view for any further extension. CT abdomen/pelvis reveals bilateral DVT involving the bilateral superficial femoral veins and on the left the common femoral vein. There is no extension into the external iliac veins. Along with noted pancolonic diverticulosis with sigmoid colon wall thickening. No role for intervention needed at this time. Responding well to IV heparin. See above for full plan for anticoagulation recommendations. Qualifiers: DVT location: lower extremity Affected thrombotic vein of extremity: iliac Chronicity: acute Laterality: bilateral Qualified Code(s): I82.423 - Acute embolism and thrombosis of iliac vein, bilateral (4) Colonic thickening Current Visit: Yes Status: Acute Assessment and plan: Noted on CT abdomen/pelvis. He had a CT abdomen/pelvis from 09/2016 which does reveal findings concerning for sigmoid diverticulosis/early diverticulitis. He does report crampy, intermittent abdominal pain from time to time, denies hematochezia, melena, no evidence of acute abdomen. Currently denies abdominal pain. Recommend GI consultation on an outpatient basis for screening colonoscopy, he denies prior colonoscopy evaluation. No role for tumor marker workup at this time. The plan as above was discussed with Dr. Goodwin who agreed with the assessment and plan Oncology: Subj Interval history: Mr. Neumann has weaned down to 1L nasal cannula with O2 sat currently around 98%. He is visiting with a friend at bedside. He ambulated around the unit quite a bit yesterday, he noted SOB on exertion but again states that his symptoms have dramatically improved since admission. He denies chest pain, SOB at rest, his pain with cough has improved, he reports decrease in his LE edema, denies LE pain. - Constitutional Vitals: Vital Signs Temp Pulse Resp BP Pulse Ox 04/10/18 11:42 98.6 F 93 18 108/77 95 04/10/18 08:02 98.6 F 88 18 110/78 94 04/10/18 03:46 89 16 113/81 98 04/09/18 23:36 98.6 F 77 18 113/86 98 04/09/18 21:18 101 04/09/18 18:37 98.9 F 106 18 99/69 98 04/09/18 15:48 97.9 F 96 18 90/67 99 04/09/18 15:36 99 Intake and Output 04/09/18 04/10/18 04/10/18 23:59 07:59 15:59 Intake Total 410 / 410 550 / 550 240 / 240 Output Total 600 / 600 Balance 410 / 410 550 / 550 -360 / -360 Intake: IV Fluids 50 / 50 550 / 550 Heparin 25,000 UNIT/500 ML D5W 50 / 50 550 / 550 25,000 unit In 500 ml @ 14 UNIT /KG/HR 25.401 mls/hr IVC . [id number] [facility] Rx#:[id number] Oral 360 / 360 240 / 240 Output: Urine 600 / 600 Other: Meal Dinner Breakfast Percent of Meal Consumed 95% 100% Weight 88.3 kg Patient Weight 04/10/18 23:59 Weight 88.3 kg General appearance: cooperative, no acute distress, no febrile - Head Head exam: Present: atraumatic - ENT ENT exam: Present: mucous membranes moist - Respiratory Respiratory exam: Present: CTAB. Absent: respiratory distress - Cardiovascular Cardiovascular exam: Present: RRR, +S1, +S2 - GI/Abdominal GI/Abdominal exam: Present: normal bowel sounds, soft. Absent: guarding, rebound, tenderness - Extremities Exam Extremities exam: Absent: calf tenderness Additional comments: mild LE/pedal edema - Neurological Exam Neurological exam: Present: alert, oriented X3, no focal deficits, strengths equal and symetr throughout - Psychiatric Psychiatric exam: Present: normal affect, normal mood - Skin Skin exam: Present: dry, intact, normal color, warm Oncology: Obj Data - Labs CBC & Chem 7: 04/10/18 04:36 04/10/18 04:36 - ABG Interpretation ABG results: PT/INR, D-dimer PT 13.5 Seconds (9.4-12.1) H 04/07/18 22:59 D-Dimer 1705 ng/mLFEU (0-500) H 04/07/18 21:08 Consult Discharge Plan - Plan Referrals: Deborah Leos DO [Resident] - 04/15/18 5:00 pm
[2018-04-10] MEDS: *HR* Enoxaparin 100 MG/ML SYRINGE SQ SCH (18:15)
[2018-04-10] MEDS ORDERED: Acetylcysteine 10% 2 ML INHSOL IH ONE (19:00)
[2018-04-10] MEDS ORDERED: Ipratropium/Albuterol Neb 3 ML IH ONE (19:00)
--- NOTE | 2018-04-10 19:00 | Internal Med Progress Note ---
Date of Encounter: 04/10/18 Time of Encounter: 18:58 - Assessment and plan (1) Pulmonary embolism, bilateral Current Visit: Yes Status: Acute Assessment and plan: Newly diagnosed bilateral PE. Hemodynamically stable. Echocardiogram revealed with preserved LV function but slight decreased right ventricular function. Discontinue heparin drip and start weight-based lovenox 90 mg SQ BID. Manager Training And Development, wine fermenter, and estate tax examiner consulted; appreciate input. Wean supplemental oxygen to room air as tolerated. Plan to discharge home tomorrow on Lovenox with close follow-up with wine fermenter. (2) DVT (deep venous thrombosis) Current Visit: Yes Status: Acute Assessment and plan: Management as per above. Vascular surgery consulted; appreciate input. No intervention planned at this time. Qualifiers: DVT location: lower extremity Affected thrombotic vein of extremity: iliac Chronicity: acute Laterality: bilateral Qualified Code(s): I82.423 - Acute embolism and thrombosis of iliac vein, bilateral (3) Pulmonary edema Current Visit: Yes Status: Acute Assessment and plan: Continue strict I&O's. No IV fluid. IV diuretics as needed if symptomatic. Qualifiers: Chronicity: acute Qualified Code(s): J81.0 - Acute pulmonary edema (4) Leukocytosis Current Visit: Yes Status: Resolved Assessment and plan: Resolved. Complete 7 day course of levaquin. Added guaifenesin 1200 mg PO BID and trial of duoneb/mucomyst inhaled today for cough. Qualifiers: Leukocytosis type: unspecified Qualified Code(s): D72.829 - Elevated white blood cell count, unspecified (5) Elevated troponin Current Visit: Yes Status: Acute Assessment and plan: Cardiology consulted; appreciate input. They do not suspect NSTEMI but rather demand ischemia related to above. Continue aspirin and beta silvina. ECHO results as per above. (6) DVT prophylaxis Current Visit: Yes Status: Acute Assessment and plan: Started weight-based lovenox today as per above. - Time Spent With Patient Total time spent is greater than 50% in coordination of care (as documented) at patient's floor/unit and/or counseling patient: less than 15 minutes - Subjective Interval history: Patient had no acute events overnight. He states that breathing is "good" on room air. He still has significant cough, and he gets SOB when he coughs. He denies fever, chills, chest pain, nausea, vomiting, or abdominal pain. He has no other complaints at this time. - Constitutional Vitals: Temp Pulse Resp BP Pulse Ox 98.1 F 102 18 108/80 93 04/10/18 18:46 04/10/18 18:46 04/10/18 18:46 04/10/18 18:46 04/10/18 18:46 General appearance: Present: cooperative, A&O X 3, pleasant, no acute distress, answers questions appropriately - Respiratory Respiratory exam: Present: CTAB. Absent: accessory muscle use, rales, rhonchi, wheezes Additional comments: Normal WOB - Cardiovascular Cardiovascular exam: Present: RRR, +S1, +S2. Absent: diastolic murmur, gallop, rubs, systolic murmur Additional comments: No BLE edema - GI/Abdominal GI/Abdominal exam: Present: normal bowel sounds, soft. Absent: distended, hepatomegaly, mass, splenomegaly, tenderness - Psychiatric Psychiatric exam: Present: normal affect, normal mood. Absent: agitated, anxious, depressed - Skin Skin exam: Present: dry, intact, warm. Absent: cyanosis, rash Internal Medicine: Result - Labs CBC & Chem 7: 04/10/18 04:36 04/10/18 04:36 Labs: Short CBC 04/10/18 Range/Units 04:36 WBC 10.0 (4.3-11.1) K/mcL Hgb 13.1 (12.9-16.9) g/dL Hct 36.3 L (37.5-50.1) % Plt Count 171 (140-400) K/mcL Neutrophils # 6.0 (1.6-8.9) K/mcL BMP 04/10/18 04:36 Sodium 133 L Potassium 3.3 L Chloride 102 Carbon Dioxide 25 BUN 7 Creatinine 0.53 L Glucose 111 H Calcium 7.9 L - ABG Interpretation ABG results: PT/INR, D-dimer PT 13.5 Seconds (9.4-12.1) H 04/07/18 22:59 D-Dimer 1705 ng/mLFEU (0-500) H 04/07/18 21:08 Consult Discharge Plan - Plan Referrals: Deborah Leos DO [Resident] - 04/15/18 5:00 pm Oxana Burton, CLINICAL NURSE EDUCATOR [Advanced Practice Nurse] - 04/19/18 9:15 am
[2018-04-11 03:09] LABS: APTT (LE Anticoag) 102 sec (32-48); Diluted Russell Viper Venom 32 sec (33-44); LE APTT D Heparin Neutralized 52 sec (32-48); LE Coag APTT Mixing 45 sec (32-48); LE Coag Reptilase Time 16.1 sec (<=21.9); PT (LE-Anticoag) 14.9 sec (12.0-15.5); Thrombin Time 29.3 sec (14.7-19.5)
[2018-04-11 04:50] LABS: Basophils # 0.1 K/mcL (0.0-0.2); Basophils % 0.5 %; Eosinophils # 0.4 K/mcL (0.0-0.6); Eosinophils % 3.4 %; Hematocrit 37.3 % (37.5-50.1); Hemoglobin 13.2 g/dL (12.9-16.9); Lymphocytes # 1.7 K/mcL (0.6-4.6); Lymphocytes % 15.5 %; Mean Corpuscular HGB Conc 35.4 g/dL (31.6-35.5); Mean Corpuscular Hemoglobin 36.2 pg (28.0-33.3); Mean Corpuscular Volume 102.2 fL (83.0-100.0); Monocytes # 1.1 K/mcL (0.0-1.3); Monocytes % 9.7 %; Neutrophils # 7.5 K/mcL (1.6-8.9); Platelet Count 200 K/mcL (140-400); Red Blood Count 3.65 M/mcL (4.19-5.50); Red Cell Distribution Width 15.3 % (11.5-14.5); Segmented Neutrophils % 68.9 %
[2018-04-11 05:09] LABS: BUN/Creatinine Ratio 13 (6-26); Blood Urea Nitrogen 7 mg/dL (6-20); Calcium 8.4 mg/dL (8.6-10.3); Carbon Dioxide 24 mEq/L (23-29); Chloride 103 mEq/L (98-107); Glucose 121 mg/dL (70-105); Osmolality,Calculated 275 (280-300); Potassium 4.1 mEq/L (3.5-5.1); Sodium 133 mEq/L (136-145); eGFR For African Americans > 60 (> 60); eGFR For Non-African Americans > 60 (> 60)
[2018-04-11] MEDS: *HR* Enoxaparin 100 MG/ML SYRINGE SQ SCH (06:12)
[2018-04-11] MEDS: Metoprolol XL (24 HR) Succ 25 MG TAB.ER.24H PO SCH (07:57)
[2018-04-11] MEDS: Fluticasone Propionate Nasal 50 MCG/SPRAY BOTTLE NS SCH (07:57)
[2018-04-11] MEDS: Aspirin Enteric Coated 81 MG Tablet PO SCH (07:57)
[2018-04-11] MEDS: Loratadine 10 MG TABLET PO SCH (07:57)
[2018-04-11] MEDS: Levofloxacin 750 MG/150 ML 750 MG/150 ML BAG IVPB SCH (11:32)
--- NOTE | 2018-04-11 15:42 | Discharge Summary ---
- NOTES TO OUTPATIENT PROVIDER Notes to Outpatient Provider: Follow up with PCP in 2-3 days after discharge. Follow up with heme/onc as directed. Orders not resulted at time of discharge: Pending orders 04/09/18 01:32 Antiphospholipid Ab High Spec AM 0400 Date of Encounter: 04/11/18 Time of Encounter: 15:35 - Discharge Diagnosis (1) Pulmonary embolism, bilateral Priority: Primary Status: Acute (2) DVT (deep venous thrombosis) Priority: Secondary Status: Acute Qualifiers: DVT location: lower extremity Affected thrombotic vein of extremity: iliac Chronicity: acute Laterality: bilateral Qualified Code(s): I82.423 - Acute embolism and thrombosis of iliac vein, bilateral (3) Pulmonary edema Priority: Secondary Status: Acute Qualifiers: Chronicity: acute Qualified Code(s): J81.0 - Acute pulmonary edema (4) Leukocytosis Priority: Secondary Status: Resolved Qualifiers: Leukocytosis type: unspecified Qualified Code(s): D72.829 - Elevated white blood cell count, unspecified (5) Elevated troponin Priority: Secondary Status: Acute (6) DVT prophylaxis Priority: Secondary Status: Acute Hospital course: Mr. Neumann is a 52 year old male admitted for worsening dyspnea secondary to bilateral pulmonary emboli/DVT. Patient was admitted to step down unit with telemetry. He was placed on supplemental O2 PRN. Heparin drip was started. Heme/onc was consulted. They recommended anticoagulation with heparin drip, then transition to SQ weight-based lovenox at discharge. He will follow up with them as outpatient and transition to NOAC. He also had elevated troponin to 0.05. Cardiology was consulted. They did not think any intervention was indicated; recommended anticoagulation. They also started aspirin and metoprolol. Pulmonology was consulted due to SOB. Patient was quickly weaned to room air. Vascular surgery was consulted, and they did not recommend any interventions except anticoagulation. Patient's respiratory status is back to baseline today. He was ambulated without any SOB or need for supplemental oxygen. Lovenox was taught to patient. Lovenox was approved by insurance and set up with pharmacy. Heme/onc follow up was set up. He will follow up with PCP in 2-3 days after discharge. Patient has met maximum benefit of this hospitalization and will be discharged home in stable condition. Discharge discussed with: patient, family, nurse, case management, other ( Pharmacist) - Time Spent with Patient Total time spent providing and/or coordinating discharge services: Greater than 30 minutes - Discharge Medications Prescriptions: Aspirin Enteric Coated [Aspirin EC] 81 mg PO DAILY 7 Days #7 tablet. Fluticasone Propionate Nasal [Flonase] 100 mcg NS DAILY #1 bottle levoFLOXacin [Levaquin] 750 mg PO DAILY 3 Days #3 tablet Loratadine [Claritin] 10 mg PO DAILY 7 Days #7 tablet Metoprolol XL (24 HR) Succ [Toprol Xl] 12.5 mg PO DAILY 7 Days #7 tab.er.24h Home Medications: Aspirin Enteric Coated [Aspirin EC] 81 mg PO DAILY 7 Days #7 tablet. 04/11/18 [Rx] Enoxaparin [Lovenox] 90 mg SQ Q12H syringe 04/11/18 [Rx] Fluticasone Propionate Nasal [Flonase] 100 mcg NS DAILY #1 bottle 04/11/18 [Rx] Loratadine [Claritin] 10 mg PO DAILY 7 Days #7 tablet 04/11/18 [Rx] Metoprolol XL (24 HR) Succ [Toprol Xl] 12.5 mg PO DAILY 7 Days #7 tab.er.24h [Rx] levoFLOXacin [Levaquin] 750 mg PO DAILY 3 Days #3 tablet 04/11/18 [Rx] Allergies/Adverse Reactions: 3 Allergy/AdvReac Type Severity Reaction Status Date / Time Penicillins Allergy Vomiting Verified 04/08/18 08:45 Sulfa (Sulfonamide Allergy Nausea Verified 04/08/18 08:45 Antibiotics) Date of admission: 04/07/18 23:18 Primary care physician: Tomy Campbell DO Consults: 04/07/18 23:57 Consult to Oncology Hematology [CONS] Routine Consulting Provider: Michael Sun Reason for Consult: Bilateral pulmonary emboli, BLE swelling Call Completed: No 04/08/18 11:21 Consult to Vascular Surgery [CONS] Stat Consulting Provider: Vascular Surgery Jacquelyn Reason for Consult: extensive DVTs b/l Call Completed: Yes 04/08/18 11:31 Consult to Pulmonology [CONS] Routine Consulting Provider: Pulm Crit Care & Sleep Jacquelyn Reason for Consult: pe Call Completed: Yes 04/08/18 11:34 Consult to Vascular Surgery [CONS] Stat Consulting Provider: Vascular Surgery Jacquelyn Reason for Consult: b/l DVT Call Completed: Yes 04/10/18 18:51 Consult to Respiratory Therapy [CONS] Routine Reason for Consult: Pulmonary Embolism. Wean to room air as tolerated. Thanks. Call Completed: No 04/11/18 13:53 Consult to Respiratory Therapy [CONS] Stat Reason for Consult: Wean to room air. Thanks. Call Completed: No Discharging clinician: Joshua Barbosa Anticipated date of discharge: 04/11/18 - Constitutional Vitals: Temp Pulse Resp BP Pulse Ox 97.2 F L 103 18 115/87 98 04/11/18 11:07 04/11/18 11:07 04/11/18 11:07 04/11/18 11:07 04/11/18 11:07 General appearance: Present: cooperative, A&O X 3, pleasant, no acute distress, answers questions appropriately - Respiratory Respiratory exam: Present: CTAB. Absent: accessory muscle use, rales, rhonchi, wheezes Additional comments: Normal WOB - Cardiovascular Cardiovascular exam: Present: RRR, +S1, +S2. Absent: diastolic murmur, gallop, rubs, systolic murmur Additional comments: No BLE edema - GI/Abdominal GI/Abdominal exam: Present: normal bowel sounds, soft. Absent: distended, hepatomegaly, mass, splenomegaly, tenderness - Psychiatric Psychiatric exam: Present: normal affect, normal mood. Absent: agitated, anxious, depressed - Skin Skin exam: Present: dry, intact, warm. Absent: cyanosis, rash - Patient Status Disposition: Home, Self-Care Condition: Good Functional capacity at discharge: independent ambulation Overall status at discharge: patient is progressing back to baseline - Discharge Instructions Follow Up With: Deborah Leos DO [Resident] - 04/15/18 5:00 pm Oxana Burton CNP [Advanced Practice Nurse] - 04/19/18 9:15 am Additional Instructions: Follow up with PCP in 2-3 days after discharge. Follow up with heme/onc as directed. - Diet and Activity Activity: resume usual activities as tolerated Diet: low fat, low cholesterol, low salt diet, other (Cardiac Diet)
[2018-04-11 16:00] VITALS: BP 108/82
[2018-04-12] MEDS ORDERED: levoFLOXacin 750 MG TABLET PO SCH (09:00)
[2018-04-13 10:26] LABS: Antiphospholipid IgG High Spec 9 GPL (0-14); Antiphospholipid IgM High Spec 3 MPL (0-14)
== END 2018-04-11 16:09 | disposition home or self-care (01) | DRG 134 ==
LOC: EMEROO 20:06 → 2NNU 23:18
PROVIDERS: ADMIT Internal Medicine; ATTEND Internal Medicine

== ENCOUNTER 2021-04-07 00:12 | Inpatient (IN) ==
[2021-04-07] MEDS ORDERED: Naloxone 0.4 MG/ML INJ IVP PRN (02:15)
[2021-04-07] MEDS ORDERED: Acetaminophen 325 MG TABLET PO PRN (02:15)
[2021-04-07] MEDS ORDERED: Ondansetron 4 MG/2 ML VIAL IVP PRN (02:15)
[2021-04-07] MEDS ORDERED: *HR* LORazepam 2 MG/ML VIAL IVP PRN ×3 (02:19)
[2021-04-07 02:42] LABS: Basophils # 0.1 K/mcL (0.0-0.2); Basophils % 1.1 %; Eosinophils # 0.2 K/mcL (0.0-0.6); Eosinophils % 2.4 %; Hematocrit 40.5 % (37.5-50.1); Hemoglobin 13.8 g/dL (12.9-16.9); Immature Granulocytes % 0.4 % (0-4); Lymphocytes # 2.5 K/mcL (0.6-4.6); Lymphocytes % 30.1 %; Mean Corpuscular HGB Conc 34.1 g/dL (31.6-35.5); Mean Corpuscular Hemoglobin 34.3 pg (28.0-33.3); Mean Corpuscular Volume 100.7 fL (83.0-100.0); Mean Platelet Volume 10.1 fL (9.4-12.4); Monocytes # 0.8 K/mcL (0.0-1.3); Neutrophils # 4.6 K/mcL (1.6-8.9); Platelet Count 172 K/mcL (140-400); Red Blood Count 4.02 M/mcL (4.19-5.50); Red Cell Distribution Width 14.3 % (11.5-14.5); White Blood Count 8.2 K/mcL (4.3-11.1)
[2021-04-07 02:51] LABS: INR 1.4
[2021-04-07 03:03] LABS: Alanine Aminotransferase 22 Units/L (7-52); Albumin 2.5 g/dL (3.5-5.7); Albumin/Globulin Ratio 0.8 (1.1-2.2); Alkaline Phosphatase 96 Units/L (34-104); Aspartate Amino Transferase 83 Units/L (13-39); BUN/Creatinine Ratio 9 (6-26); Bilirubin,Direct 0.5 mg/dL (0.0-0.2); Bilirubin,Indirect 0.7 mg/dL (0.0-1.0); Bilirubin,Total 1.2 mg/dL (0.3-1.0); Blood Urea Nitrogen 6 mg/dL (6-20); Calcium 7.7 mg/dL (8.6-10.3); Carbon Dioxide 31 mEq/L (23-29); Chloride 98 mEq/L (98-107); Globulin 3.2 g/dL (2.4-3.5); Glucose 98 mg/dL (70-105); Magnesium 1.6 mg/dL (1.6-2.6); Osmolality,Calculated 290 (280-300); Phosphorous 2.9 mg/dL (2.7-4.5); Sodium 141 mEq/L (136-145); Total Protein 5.7 g/dL (6.4-8.9); Troponin I < 0.03 ng/mL (< 0.04); eGFR For African Americans > 60 (> 60); eGFR For Non-African Americans > 60 (> 60)
[2021-04-07] MEDS: Thiamine (B-1) 100 MG, Folic Acid 1 MG, MVI, adult with vitamin K 10 ML in 0.9 % Sodi... IVPB SCH (03:41)
[2021-04-07] MEDS ORDERED: Pantoprazole 40 MG VIAL IVP ONE ×2 (05:36→06:30)
[2021-04-07] MEDS ORDERED: Potassium Chloride 40 MEQ, Lidocaine 1% 2 ML in 0.9 % Sodium Chloride 500 ML IVPB ONE ×2 (06:48→12:58)
[2021-04-07] MEDS: Furosemide 40 MG/4 ML VIAL IVP SCH ×2 (06:53→10:54)
[2021-04-07] MEDS ORDERED: MetroNIDAZOLE 500 MG/100 ML 500 MG/100 ML BAG IVPB SCH (08:00)
[2021-04-07] MEDS ORDERED: Perflutren Lipid Microsphere 1.3 ML in 0.9 % Sodium Chloride 8.7 ML IVP PRN (08:43)
[2021-04-07] MEDS: MetroNIDAZOLE 500 MG/100 ML 500 MG/100 ML BAG IVPB SCH (19:40)
[2021-04-07] MEDS: Melatonin 3 MG TABLET PO PRN (21:25)
[2021-04-08 04:08] LABS: Basophils # 0.1 K/mcL (0.0-0.2); Basophils % 0.8 %; Eosinophils # 0.1 K/mcL (0.0-0.6); Eosinophils % 2.3 %; Hematocrit 38.8 % (37.5-50.1); Hemoglobin 13.2 g/dL (12.9-16.9); Immature Granulocytes % 0.5 % (0-4); Lymphocytes # 1.5 K/mcL (0.6-4.6); Lymphocytes % 24.4 %; Mean Corpuscular Hemoglobin 34.6 pg (28.0-33.3); Mean Corpuscular Volume 101.8 fL (83.0-100.0); Monocytes # 0.7 K/mcL (0.0-1.3); Monocytes % 11.8 %; Neutrophils # 3.6 K/mcL (1.6-8.9); Platelet Count 140 K/mcL (140-400); Red Blood Count 3.81 M/mcL (4.19-5.50); Red Cell Distribution Width 14.2 % (11.5-14.5); Segmented Neutrophils % 60.2 %
[2021-04-08 04:19] LABS: Alanine Aminotransferase 20 Units/L (7-52); Albumin 2.4 g/dL (3.5-5.7); Albumin/Globulin Ratio 0.8 (1.1-2.2); Alkaline Phosphatase 88 Units/L (34-104); Aspartate Amino Transferase 74 Units/L (13-39); BUN/Creatinine Ratio 10 (6-26); Bilirubin,Total 2.3 mg/dL (0.3-1.0); Blood Urea Nitrogen 8 mg/dL (6-20); Calcium 7.5 mg/dL (8.6-10.3); Carbon Dioxide 34 mEq/L (23-29); Chloride 98 mEq/L (98-107); Globulin 3.2 g/dL (2.4-3.5); Glucose 77 mg/dL (70-105); Magnesium 1.4 mg/dL (1.6-2.6); Osmolality,Calculated 291 (280-300); Phosphorous 3.2 mg/dL (2.7-4.5); Potassium 3.1 mEq/L (3.5-5.1); Sodium 142 mEq/L (136-145); Total Protein 5.6 g/dL (6.4-8.9); eGFR For African Americans > 60 (> 60); eGFR For Non-African Americans > 60 (> 60)
[2021-04-08] MEDS: MetroNIDAZOLE 500 MG/100 ML 500 MG/100 ML BAG IVPB SCH ×3 (05:53→19:56)
[2021-04-08] MEDS: Furosemide 40 MG/4 ML VIAL IVP SCH (08:49)
[2021-04-08] MEDS: Apixaban 5 MG TABLET PO SCH ×2 (11:00→19:57)
[2021-04-08 13:36] LABS: Adenovirus F 40/41 PCR Not detected (Not detect); Astrovirus PCR Not detected (Not detect); C.difficile Toxin A/B Gene PCR Not detected (Not detect); Campylobacter by PCR Not detected (Not detect); Cryptosporidium by PCR Not detected (Not detect); Cyclospora cayetanensis PCR Not detected (Not detect); E. coli O157 by PCR Not detected (Not detect); Entamoeba histolytica PCR Not detected (Not detect); Enteroaggregative E.coli(EAEC) DETECTED (Not detect); Enteropathogenic E.coli(EPEC) DETECTED (Not detect); Enterotoxigenic E.coli (ETEC) Not detected (Not detect); Giardia lamblia PCR Not detected (Not detect); Norovirus GI/GII PCR Not detected (Not detect); Plesiomonas shigelloides PCR Not detected (Not detect); Rotavirus A PCR Not detected (Not detect); Salmonella PCR Not detected (Not detect); Sapovirus PCR Not detected (Not detect); Shig/EnteroinvasiveE coli EIEC Not detected (Not detect); Shigalike tox-prod E coli STEC Not detected (Not detect); Vibrio PCR Not detected (Not detect); Vibrio cholerae PCR Not detected (Not detect); Yersinia enterocolitica PCR Not detected (Not detect)
[2021-04-08] MEDS: Thiamine (B-1) 100 MG, Folic Acid 1 MG, MVI, adult with vitamin K 10 ML in 0.9 % Sodi... IVPB SCH (17:41)
[2021-04-08] MEDS: Melatonin 3 MG TABLET PO PRN (19:56)
[2021-04-09] MEDS: MetroNIDAZOLE 500 MG/100 ML 500 MG/100 ML BAG IVPB SCH ×3 (04:21→19:59)
[2021-04-09 06:06] LABS: Basophils # 0.1 K/mcL (0.0-0.2); Eosinophils # 0.2 K/mcL (0.0-0.6); Eosinophils % 2.9 %; Hematocrit 37.8 % (37.5-50.1); Hemoglobin 13.1 g/dL (12.9-16.9); Immature Granulocytes % 0.7 % (0-4); Lymphocytes # 1.4 K/mcL (0.6-4.6); Lymphocytes % 23.5 %; Mean Corpuscular HGB Conc 34.7 g/dL (31.6-35.5); Mean Corpuscular Hemoglobin 35.2 pg (28.0-33.3); Mean Corpuscular Volume 101.6 fL (83.0-100.0); Mean Platelet Volume 10.5 fL (9.4-12.4); Monocytes # 0.7 K/mcL (0.0-1.3); Monocytes % 11.5 %; Neutrophils # 3.5 K/mcL (1.6-8.9); Platelet Count 131 K/mcL (140-400); Red Blood Count 3.72 M/mcL (4.19-5.50); Red Cell Distribution Width 14.1 % (11.5-14.5); Segmented Neutrophils % 60.4 %; White Blood Count 5.8 K/mcL (4.3-11.1)
[2021-04-09 06:30] LABS: Alanine Aminotransferase 17 Units/L (7-52); Albumin 2.5 g/dL (3.5-5.7); Albumin/Globulin Ratio 0.9 (1.1-2.2); Alkaline Phosphatase 88 Units/L (34-104); Aspartate Amino Transferase 59 Units/L (13-39); BUN/Creatinine Ratio 13 (6-26); Blood Urea Nitrogen 10 mg/dL (6-20); Calcium 7.7 mg/dL (8.6-10.3); Carbon Dioxide 30 mEq/L (23-29); Chloride 102 mEq/L (98-107); Globulin 2.9 g/dL (2.4-3.5); Glucose 82 mg/dL (70-105); Osmolality,Calculated 286 (280-300); Sodium 139 mEq/L (136-145); Total Protein 5.4 g/dL (6.4-8.9); eGFR For African Americans > 60 (> 60); eGFR For Non-African Americans > 60 (> 60)
[2021-04-09] MEDS ORDERED: Potassium Chloride 40 MEQ, Lidocaine 1% 2 ML in 0.9 % Sodium Chloride 500 ML IVPB ONE (07:44)
[2021-04-09] MEDS: Furosemide 40 MG/4 ML VIAL IVP SCH (08:37)
[2021-04-09] MEDS: Apixaban 5 MG TABLET PO SCH ×2 (08:37→19:59)
[2021-04-09] MEDS ORDERED: Aspirin Enteric Coated 81 MG Tablet PO SCH (09:00)
[2021-04-09] MEDS: Thiamine (B-1) 100 MG, Folic Acid 1 MG, MVI, adult with vitamin K 10 ML in 0.9 % Sodi... IVPB SCH (17:27)
[2021-04-10] MEDS: MetroNIDAZOLE 500 MG/100 ML 500 MG/100 ML BAG IVPB SCH (03:16)
[2021-04-10] MEDS: Melatonin 3 MG TABLET PO PRN (06:25)
[2021-04-10 06:36] VITALS: BP 131/80
[2021-04-10 06:51] LABS: Basophils # 0.1 K/mcL (0.0-0.2); Basophils % 0.7 %; Eosinophils # 0.2 K/mcL (0.0-0.6); Eosinophils % 2.9 %; Hematocrit 37.9 % (37.5-50.1); Hemoglobin 12.5 g/dL (12.9-16.9); Immature Granulocytes % 0.9 % (0-4); Lymphocytes # 1.6 K/mcL (0.6-4.6); Lymphocytes % 20.6 %; Mean Corpuscular Hemoglobin 34.2 pg (28.0-33.3); Mean Corpuscular Volume 103.6 fL (83.0-100.0); Monocytes # 0.9 K/mcL (0.0-1.3); Monocytes % 12.1 %; Neutrophils # 4.7 K/mcL (1.6-8.9); Platelet Count 133 K/mcL (140-400); Red Blood Count 3.66 M/mcL (4.19-5.50); Segmented Neutrophils % 62.8 %; White Blood Count 7.5 K/mcL (4.3-11.1)
[2021-04-10 07:12] LABS: Alanine Aminotransferase 16 Units/L (7-52); Albumin 2.5 g/dL (3.5-5.7); Albumin/Globulin Ratio 0.9 (1.1-2.2); Alkaline Phosphatase 82 Units/L (34-104); Aspartate Amino Transferase 56 Units/L (13-39); BUN/Creatinine Ratio 12 (6-26); Bilirubin,Total 1.9 mg/dL (0.3-1.0); Blood Urea Nitrogen 8 mg/dL (6-20); Calcium 7.6 mg/dL (8.6-10.3); Carbon Dioxide 26 mEq/L (23-29); Chloride 103 mEq/L (98-107); Globulin 2.9 g/dL (2.4-3.5); Glucose 73 mg/dL (70-105); Magnesium 1.7 mg/dL (1.6-2.6); Osmolality,Calculated 281 (280-300); Potassium 3.1 mEq/L (3.5-5.1); Sodium 137 mEq/L (136-145); Total Protein 5.4 g/dL (6.4-8.9); eGFR For African Americans > 60 (> 60); eGFR For Non-African Americans > 60 (> 60)
== END 2021-04-10 09:40 | disposition home or self-care (01) | DRG 896 ==
LOC: 3BNU → SUATTDRO 01:20
PROVIDERS: ADMIT Student in an Organized Health Care Education/Training Program; ATTEND Family Medicine

== ENCOUNTER 2021-08-08 14:10 | Inpatient (IN) ==
[2021-08-08] MEDS ORDERED: Ondansetron ODT 4 MG TAB.RAPDIS SL PRN (17:34)
[2021-08-08] MEDS ORDERED: Potassium Chloride 40 MEQ, Lidocaine 1% 2 ML in 0.9 % Sodium Chloride 500 ML IVPB ONE (17:39)
[2021-08-08] MEDS ORDERED: cefTRIAXone 2,000 MG in Water for inj. (sterile) 20 ML IVP SCH (18:00)
[2021-08-08] MEDS: Albumin 25% 25gram/100mL 25 GM/100 ML IV.SOLN IVC SCH ×4 (18:10→23:04)
[2021-08-08 19:35] LABS: Appearance of Peritoneal Fl CLEAR (Clear)
[2021-08-08 19:36] LABS: RBC,Peritoneal Fluid < 2000 RBC/mcL
[2021-08-08] MEDS ORDERED: Ringers Solution, Lactated 1,000 ML IVC ONE (19:47)
[2021-08-08 20:04] LABS: LDH,Peritoneal Fluid 55 Units/L (No Ref Range); Total Protein,Peritoneal Fluid < 2.0 g/dL
[2021-08-08] MEDS ORDERED: *HR* LORazepam 2 MG/ML VIAL IVP PRN ×2 (20:18)
[2021-08-08 20:29] LABS: Basophils,Peritoneal Fluid 0 %; Eosinophils,Peritoneal Fluid 0 %
[2021-08-08] MEDS ORDERED: Thiamine (B-1) 200 MG in 0.9 % Sodium Chloride 50 ML IVPB ONE (20:30)
[2021-08-08] MEDS: Lactulose Oral Soln 20 GM/30 ML UDC PO SCH (21:18)
[2021-08-09] MEDS: *HR* LORazepam 2 MG/ML VIAL IVP PRN ×2 (01:00→12:55)
[2021-08-09 04:36] LABS: Hematocrit 24.2 % (37.5-50.1); Hemoglobin 8.1 g/dL (12.9-16.9); Mean Corpuscular HGB Conc 33.5 g/dL (31.6-35.5); Mean Corpuscular Volume 107.6 fL (83.0-100.0); Mean Platelet Volume 10.1 fL (9.4-12.4); Platelet Count 104 K/mcL (140-400); Red Blood Count 2.25 M/mcL (4.19-5.50); Red Cell Distribution Width 15.4 % (11.5-14.5); White Blood Count 7.4 K/mcL (4.3-11.1)
[2021-08-09 04:44] LABS: INR 2.5; Prothrombin Time 28.1 Seconds (9.4-12.1)
[2021-08-09 04:50] LABS: Albumin 3.1 g/dL (3.5-5.7); Albumin/Globulin Ratio 1.6 (1.1-2.2); Calcium 7.7 mg/dL (8.6-10.3); Globulin 1.9 g/dL (2.4-3.5); Potassium 3.3 mEq/L (3.5-5.1)
[2021-08-09 06:16] LABS: Bacteria,Urine Few per hpf (None-Few); Bilirubin,Urine Moderate (Negative); Blood,Urine Large (Negative); Clarity,Urine Turbid (Clear); Color,Urine Orange (Yellow); Glucose,Urine (UA) Normal (Normal); Hyaline Casts,Urine Moderate per lpf (None Seen); Ketones,Urine Negative (Negative); Leukocyte Esterase,Urine Small (Negative); Mucus,Urine Few per lpf (None-Few); Nitrite,Urine Negative (Negative); PH,Urine 5.5 pH Units (5.0-8.0); Protein,Urine 50 mg/dL (Neg-Trace); RBC,Urine TNTC per hpf (0-3); Specific Gravity,Urine 1.023 (1.010-1.025); Squamous Epithelial Cell,Urine Few per hpf (None-Few); WBC,Urine 30-50 per hpf (0-3)
[2021-08-09 06:22] LABS: Sodium, Urine 13.3 mEq/L
[2021-08-09] MEDS: Lactulose Oral Soln 20 GM/30 ML UDC PO SCH ×2 (08:21→21:19)
[2021-08-09] MEDS: Albumin 25% 25gram/100mL 25 GM/100 ML IV.SOLN IVPB SCH ×3 (08:22→19:33)
[2021-08-09 11:55] LABS: Uric Acid 12.9 mg/dL (2.3-7.6)
[2021-08-09 12:14] LABS: Hepatitis B Surface Antigen Nonreactive (Nonreactive)
[2021-08-09 12:43] LABS: Hepatitis C Virus Antibody Nonreactive (Nonreactive)
[2021-08-09 12:44] LABS: Hepatitis B Core IgM Nonreactive (Nonreactive)
[2021-08-09 12:45] LABS: Hepatitis A Antibody IgM Nonreactive (Nonreactive)
[2021-08-09 13:27] LABS: VBG HCO3 32 mEq/L (21-27); VBG PCO2 40 mmHg (41-51); VBG PH 7.51 pH Units (7.32-7.42); VBG PO2 185 mmHg (25-50)
[2021-08-09] MEDS: Octreotide 50 MCG/ML INJ SQ SCH (16:28)
[2021-08-09] MEDS: Thiamine (B-1) 100 MG, Folic Acid 1 MG, MVI, adult with vitamin K 10 ML in 0.9 % Sodi... IVPB SCH (17:58)
[2021-08-09] MEDS ORDERED: Lactulose 200 GM, Sodium Chloride IRRigation 700 ML RC ONE (21:23)
[2021-08-10] MEDS: Albumin 25% 25gram/100mL 25 GM/100 ML IV.SOLN IVPB SCH ×4 (00:36→20:24)
[2021-08-10] MEDS: *HR* LORazepam 2 MG/ML VIAL IVP PRN (00:37)
[2021-08-10] MEDS: Octreotide 50 MCG/ML INJ SQ SCH ×4 (00:37→23:21)
[2021-08-10 08:27] LABS: Hematocrit 25.4 % (37.5-50.1); Hemoglobin 8.4 g/dL (12.9-16.9); Mean Corpuscular HGB Conc 33.1 g/dL (31.6-35.5); Mean Corpuscular Hemoglobin 35.9 pg (28.0-33.3); Mean Corpuscular Volume 108.5 fL (83.0-100.0); Mean Platelet Volume 10.1 fL (9.4-12.4); Platelet Count 101 K/mcL (140-400); Red Blood Count 2.34 M/mcL (4.19-5.50); Red Cell Distribution Width 15.5 % (11.5-14.5); White Blood Count 8.9 K/mcL (4.3-11.1)
[2021-08-10 08:46] LABS: Calcium 8.5 mg/dL (8.6-10.3); Potassium 3.3 mEq/L (3.5-5.1)
[2021-08-10] MEDS: Lactulose Oral Soln 20 GM/30 ML UDC PO SCH ×2 (10:26→20:24)
[2021-08-10] MEDS ORDERED: *HR* Metoprolol 5 MG/5 ML VIAL IVP ONE (12:56)
[2021-08-10] MEDS ORDERED: Perflutren Lipid Microsphere 1.3 ML in 0.9 % Sodium Chloride 8.7 ML IVP PRN (13:14)
[2021-08-10] MEDS: Thiamine (B-1) 100 MG, Folic Acid 1 MG, MVI, adult with vitamin K 10 ML in 0.9 % Sodi... IVPB SCH (17:39)
[2021-08-10 23:53] LABS: Fluid Source for Albumin ASCITES FLUID
[2021-08-11 00:57] LABS: Basophils % 0.5 %; Eosinophils # 0.2 K/mcL (0.0-0.6); Eosinophils % 2.1 %; Hematocrit 24.2 % (37.5-50.1); Hemoglobin 7.9 g/dL (12.9-16.9); Immature Granulocytes % 0.6 % (0-4); Lymphocytes # 1.1 K/mcL (0.6-4.6); Lymphocytes % 12.9 %; Mean Corpuscular HGB Conc 32.6 g/dL (31.6-35.5); Mean Corpuscular Hemoglobin 35.7 pg (28.0-33.3); Mean Corpuscular Volume 109.5 fL (83.0-100.0); Monocytes # 1.4 K/mcL (0.0-1.3); Monocytes % 16.6 %; Neutrophils # 5.7 K/mcL (1.6-8.9); Nucleated Red Blood Cells 0.2 /100 WBC (0); Red Blood Count 2.21 M/mcL (4.19-5.50); Red Cell Distribution Width 15.6 % (11.5-14.5); Segmented Neutrophils % 67.3 %; White Blood Count 8.4 K/mcL (4.3-11.1)
[2021-08-11 00:58] LABS: Platelet Count 97 K/mcL (140-400)
[2021-08-11 01:13] LABS: Calcium 8.7 mg/dL (8.6-10.3); Potassium 3.3 mEq/L (3.5-5.1)
[2021-08-11] MEDS ORDERED: *HR* Metoprolol 5 MG/5 ML VIAL IVP ONE (02:50)
[2021-08-11] MEDS: Albumin 25% 25gram/100mL 25 GM/100 ML IV.SOLN IVPB SCH ×4 (02:57→19:38)
[2021-08-11 05:02] LABS: Magnesium 2.1 mg/dL (1.6-2.6); Phosphorous 3.5 mg/dL (2.7-4.5)
[2021-08-11] MEDS ORDERED: DilTIAZem 50 MG/50 ML IV.SOLN IVC SCH (06:15)
[2021-08-11] MEDS: Octreotide 50 MCG/ML INJ SQ SCH ×2 (09:48→16:09)
[2021-08-11] MEDS: Lactulose Oral Soln 20 GM/30 ML UDC PO SCH ×2 (09:49→19:38)
[2021-08-11] MEDS ORDERED: Pantoprazole 40 MG VIAL IVP SCH (10:45)
[2021-08-11] MEDS ORDERED: Amiodarone Premix 150 MG/100 ML BAG IVPB ONE (10:46)
[2021-08-11] MEDS ORDERED: Amiodarone Premix 360 MG/200 ML BAG IVC ONE (10:46)
[2021-08-11] MEDS: Pantoprazole 40 MG VIAL IVP SCH ×2 (16:09→19:38)
[2021-08-11] MEDS: Amiodarone Premix 360 MG/200 ML BAG IVC SCH (19:34)
[2021-08-11] MEDS: Thiamine (B-1) 100 MG, Folic Acid 1 MG, MVI, adult with vitamin K 10 ML in 0.9 % Sodi... IVPB SCH (21:48)
[2021-08-12] MEDS: Octreotide 50 MCG/ML INJ SQ SCH ×3 (00:48→16:04)
[2021-08-12 00:58] LABS: Basophils % 0.5 %; Eosinophils # 0.2 K/mcL (0.0-0.6); Eosinophils % 1.9 %; Hematocrit 22.1 % (37.5-50.1); Hemoglobin 7.4 g/dL (12.9-16.9); Immature Granulocytes % 0.8 % (0-4); Lymphocytes # 1.2 K/mcL (0.6-4.6); Lymphocytes % 14.2 %; Mean Corpuscular HGB Conc 33.5 g/dL (31.6-35.5); Mean Corpuscular Hemoglobin 36.8 pg (28.0-33.3); Mean Platelet Volume 10.1 fL (9.4-12.4); Monocytes # 1.4 K/mcL (0.0-1.3); Monocytes % 16.3 %; Neutrophils # 5.8 K/mcL (1.6-8.9); Platelet Count 103 K/mcL (140-400); Red Blood Count 2.01 M/mcL (4.19-5.50); Red Cell Distribution Width 15.6 % (11.5-14.5); Segmented Neutrophils % 66.3 %; White Blood Count 8.8 K/mcL (4.3-11.1)
[2021-08-12 01:24] LABS: Calcium 9.1 mg/dL (8.6-10.3); Potassium 3.2 mEq/L (3.5-5.1)
[2021-08-12] MEDS: Albumin 25% 25gram/100mL 25 GM/100 ML IV.SOLN IVPB SCH ×4 (03:43→21:14)
[2021-08-12 07:34] LABS: Adenovirus F 40/41 PCR Not detected (Not detect); Astrovirus PCR Not detected (Not detect); Campylobacter by PCR Not detected (Not detect); Cryptosporidium by PCR Not detected (Not detect); Cyclospora cayetanensis PCR Not detected (Not detect); E. coli O157 by PCR Not detected (Not detect); Entamoeba histolytica PCR Not detected (Not detect); Enteroaggregative E.coli(EAEC) Not detected (Not detect); Enteropathogenic E.coli(EPEC) Not detected (Not detect); Enterotoxigenic E.coli (ETEC) Not detected (Not detect); Giardia lamblia PCR Not detected (Not detect); Norovirus GI/GII PCR Not detected (Not detect); Plesiomonas shigelloides PCR Not detected (Not detect); Rotavirus A PCR Not detected (Not detect); Salmonella PCR Not detected (Not detect); Sapovirus PCR Not detected (Not detect); Shig/EnteroinvasiveE coli EIEC Not detected (Not detect); Shigalike tox-prod E coli STEC Not detected (Not detect); Vibrio PCR Not detected (Not detect); Vibrio cholerae PCR Not detected (Not detect); Yersinia enterocolitica PCR Not detected (Not detect)
[2021-08-12 07:39] LABS: C.difficile Toxin A/B Gene PCR DETECTED (Not detect)
[2021-08-12 08:50] LABS: Albumin 4.4 g/dL (3.5-5.7); Albumin/Globulin Ratio 2.4 (1.1-2.2); Bilirubin,Direct 1.1 mg/dL (0.0-0.2); Bilirubin,Indirect 0.9 mg/dL (0.0-1.0); Globulin 1.8 g/dL (2.4-3.5); Total Protein 6.2 g/dL (6.4-8.9)
[2021-08-12] MEDS: Pantoprazole 40 MG VIAL IVP SCH ×2 (09:30→21:14)
[2021-08-12] MEDS: Lactulose Oral Soln 20 GM/30 ML UDC PO SCH ×2 (09:31→21:14)
[2021-08-12] MEDS: Amiodarone Premix 360 MG/200 ML BAG IVC SCH (10:42)
[2021-08-12 12:11] LABS: INR 1.7; Prothrombin Time 19.1 Seconds (9.4-12.1)
[2021-08-13] MEDS: Octreotide 50 MCG/ML INJ SQ SCH ×4 (00:39→23:40)
[2021-08-13] MEDS: Amiodarone Premix 360 MG/200 ML BAG IVC SCH (00:49)
[2021-08-13 02:29] LABS: Basophils # 0.1 K/mcL (0.0-0.2); Basophils % 0.9 %; Eosinophils # 0.2 K/mcL (0.0-0.6); Eosinophils % 2.7 %; Hematocrit 23.9 % (37.5-50.1); Hemoglobin 7.8 g/dL (12.9-16.9); Immature Granulocytes % 0.7 % (0-4); Lymphocytes # 1.1 K/mcL (0.6-4.6); Lymphocytes % 14.6 %; Mean Corpuscular HGB Conc 32.6 g/dL (31.6-35.5); Mean Corpuscular Hemoglobin 36.1 pg (28.0-33.3); Mean Corpuscular Volume 110.6 fL (83.0-100.0); Monocytes # 1.2 K/mcL (0.0-1.3); Monocytes % 15.7 %; Neutrophils # 4.9 K/mcL (1.6-8.9); Platelet Count 112 K/mcL (140-400); Red Blood Count 2.16 M/mcL (4.19-5.50); Red Cell Distribution Width 16.4 % (11.5-14.5); Segmented Neutrophils % 65.4 %; White Blood Count 7.5 K/mcL (4.3-11.1)
[2021-08-13 02:47] LABS: Calcium 9.3 mg/dL (8.6-10.3); Potassium 3.5 mEq/L (3.5-5.1)
[2021-08-13 02:56] LABS: Platelet Estimate Slight Decrease (Normal)
[2021-08-13] MEDS: Albumin 25% 25gram/100mL 25 GM/100 ML IV.SOLN IVPB SCH ×4 (07:21→18:01)
[2021-08-13] MEDS ORDERED: Lidocaine -MPF 2% 2 ML VIAL ONE (07:30)
[2021-08-13] MEDS: Lactulose Oral Soln 20 GM/30 ML UDC PO SCH ×3 (09:22→23:59)
[2021-08-13] MEDS: Pantoprazole 40 MG VIAL IVP SCH ×2 (09:22→23:40)
[2021-08-14] MEDS: Albumin 25% 25gram/100mL 25 GM/100 ML IV.SOLN IVPB SCH ×4 (05:12→19:33)
[2021-08-14 05:46] LABS: Hematocrit 22.5 % (37.5-50.1); Hemoglobin 7.4 g/dL (12.9-16.9); Mean Corpuscular HGB Conc 32.9 g/dL (31.6-35.5); Mean Corpuscular Hemoglobin 36.1 pg (28.0-33.3); Mean Corpuscular Volume 109.8 fL (83.0-100.0); Mean Platelet Volume 10.6 fL (9.4-12.4); Platelet Count 106 K/mcL (140-400); Red Blood Count 2.05 M/mcL (4.19-5.50); Red Cell Distribution Width 16.5 % (11.5-14.5); White Blood Count 7.8 K/mcL (4.3-11.1)
[2021-08-14 06:07] LABS: Calcium 9.5 mg/dL (8.6-10.3); Potassium 3.4 mEq/L (3.5-5.1)
[2021-08-14] MEDS: Pantoprazole 40 MG VIAL IVP SCH ×2 (07:43→20:59)
[2021-08-14] MEDS: Octreotide 50 MCG/ML INJ SQ SCH ×3 (07:43→23:34)
[2021-08-14] MEDS ORDERED: Lidocaine -MPF 2% 2 ML VIAL ONE (08:10)
[2021-08-14] MEDS ORDERED: *HR* Propofol 200 MG/20 ML VIAL IVP ONE (08:13)
[2021-08-14] MEDS: *HR* Amiodarone 200 MG TABLET PO SCH ×2 (10:45→20:59)
[2021-08-14] MEDS: Lactulose Oral Soln 20 GM/30 ML UDC PO SCH ×2 (10:45→20:59)
[2021-08-15] MEDS: Albumin 25% 25gram/100mL 25 GM/100 ML IV.SOLN IVPB SCH ×4 (01:15→16:18)
[2021-08-15 03:16] LABS: Hemoglobin 7.1 g/dL (12.9-16.9)
[2021-08-15 03:18] LABS: Hematocrit 22.5 % (37.5-50.1); Immature Platelets 5.9 % (1.1-6.1); Mean Corpuscular HGB Conc 31.6 g/dL (31.6-35.5); Mean Corpuscular Volume 110.8 fL (83.0-100.0); Mean Platelet Volume 10.7 fL (9.4-12.4); Red Blood Count 2.03 M/mcL (4.19-5.50); Red Cell Distribution Width 16.2 % (11.5-14.5); White Blood Count 7.2 K/mcL (4.3-11.1)
[2021-08-15 03:33] LABS: Calcium 9.7 mg/dL (8.6-10.3); Potassium 3.7 mEq/L (3.5-5.1)
[2021-08-15] MEDS: Lactulose Oral Soln 20 GM/30 ML UDC PO SCH ×2 (08:55→20:00)
[2021-08-15] MEDS: Pantoprazole 40 MG VIAL IVP SCH ×2 (08:55→19:58)
[2021-08-15] MEDS: Octreotide 50 MCG/ML INJ SQ SCH ×2 (08:56→14:15)
[2021-08-15] MEDS: *HR* Amiodarone 200 MG TABLET PO SCH ×2 (08:56→20:00)
[2021-08-15] MEDS ORDERED: *HR* Amiodarone 200 MG TABLET PO ONE (13:25)
[2021-08-15 14:13] LABS: Folate 15.1 ng/mL (3.0-16.0)
[2021-08-16] MEDS: Albumin 25% 25gram/100mL 25 GM/100 ML IV.SOLN IVPB SCH ×4 (01:39→21:47)
[2021-08-16] MEDS: Octreotide 50 MCG/ML INJ SQ SCH ×3 (01:40→16:18)
[2021-08-16] MEDS ORDERED: *HR* Metoprolol 5 MG/5 ML VIAL IVP ONE (06:31)
[2021-08-16 06:36] LABS: Hematocrit 24.2 % (37.5-50.1); Hemoglobin 7.7 g/dL (12.9-16.9); Mean Corpuscular HGB Conc 31.8 g/dL (31.6-35.5); Mean Platelet Volume 10.7 fL (9.4-12.4); Red Cell Distribution Width 16.2 % (11.5-14.5); White Blood Count 7.8 K/mcL (4.3-11.1)
[2021-08-16 06:38] LABS: Platelet Count 98 K/mcL (140-400)
[2021-08-16 06:44] LABS: INR 1.8; Prothrombin Time 20.2 Seconds (9.4-12.1)
[2021-08-16 06:51] LABS: Albumin/Globulin Ratio 2.5 (1.1-2.2); Bilirubin,Direct 0.8 mg/dL (0.0-0.2); Bilirubin,Indirect 0.9 mg/dL (0.0-1.0); Bilirubin,Total 1.7 mg/dL (0.3-1.0); Calcium 10.1 mg/dL (8.6-10.3); Potassium 3.5 mEq/L (3.5-5.1)
[2021-08-16] MEDS ORDERED: Folic Acid 1 MG TABLET PO SCH (09:00)
[2021-08-16] MEDS: Cyanocobalamin (B-12) 1,000 MCG TABLET PO SCH (09:12)
[2021-08-16] MEDS: *HR* Amiodarone 200 MG TABLET PO SCH ×2 (09:12→21:47)
[2021-08-16] MEDS: Pantoprazole 40 MG VIAL IVP SCH ×2 (09:13→21:47)
[2021-08-16] MEDS: Lactulose Oral Soln 20 GM/30 ML UDC PO SCH ×3 (09:14→21:47)
[2021-08-16] MEDS ORDERED: *HR* Propofol 200 MG/20 ML VIAL IVP ONE (14:05)
[2021-08-16] MEDS ORDERED: Lidocaine -MPF 2% 5 ML VIAL ONE (14:05)
[2021-08-16 19:11] LABS: Hepatitis B Surface Antibody < 3.10 mIU/mL
[2021-08-16 19:21] LABS: Hepatitis B Surface Antigen Nonreactive (Nonreactive)
[2021-08-17] MEDS: Octreotide 50 MCG/ML INJ SQ SCH ×3 (00:14→17:11)
[2021-08-17 01:01] LABS: Hematocrit 24.3 % (37.5-50.1); Hemoglobin 7.6 g/dL (12.9-16.9); Immature Platelets 4.7 % (1.1-6.1); Mean Corpuscular HGB Conc 31.3 g/dL (31.6-35.5); Mean Corpuscular Hemoglobin 34.5 pg (28.0-33.3); Mean Corpuscular Volume 110.5 fL (83.0-100.0); Mean Platelet Volume 10.6 fL (9.4-12.4); Red Blood Count 2.2 M/mcL (4.19-5.50); Red Cell Distribution Width 15.9 % (11.5-14.5); White Blood Count 8.3 K/mcL (4.3-11.1)
[2021-08-17 01:19] LABS: Calcium 10.1 mg/dL (8.6-10.3); Potassium 3.5 mEq/L (3.5-5.1)
[2021-08-17] MEDS: Albumin 25% 25gram/100mL 25 GM/100 ML IV.SOLN IVPB SCH ×4 (03:00→21:05)
[2021-08-17] MEDS: Pantoprazole 40 MG VIAL IVP SCH (08:25)
[2021-08-17] MEDS: Lactulose Oral Soln 20 GM/30 ML UDC PO SCH ×3 (08:25→21:05)
[2021-08-17] MEDS: Cyanocobalamin (B-12) 1,000 MCG TABLET PO SCH (08:25)
[2021-08-17] MEDS: *HR* Amiodarone 200 MG TABLET PO SCH ×2 (08:26→21:05)
[2021-08-18] MEDS: Octreotide 50 MCG/ML INJ SQ SCH ×3 (00:23→15:07)
[2021-08-18 01:09] LABS: Iron 32 mcg/dL (65-175)
[2021-08-18] MEDS: Albumin 25% 25gram/100mL 25 GM/100 ML IV.SOLN IVPB SCH ×4 (01:45→19:55)
[2021-08-18 02:13] LABS: % Iron Saturation 27 % (20-55); Transferrin 84 mg/dL (203-362)
[2021-08-18 08:27] LABS: Basophils % 0.7 %; Hemoglobin 7.6 g/dL (12.9-16.9); Lymphocytes % 12.8 %
[2021-08-18 08:28] LABS: Basophils # 0.1 K/mcL (0.0-0.2); Eosinophils # 0.4 K/mcL (0.0-0.6); Eosinophils % 4.2 %; Hematocrit 23.3 % (37.5-50.1); Immature Granulocytes % 0.2 % (0-4); Immature Platelets 6.4 % (1.1-6.1); Lymphocytes # 1.1 K/mcL (0.6-4.6); Mean Corpuscular HGB Conc 32.6 g/dL (31.6-35.5); Mean Corpuscular Hemoglobin 35.7 pg (28.0-33.3); Mean Corpuscular Volume 109.4 fL (83.0-100.0); Monocytes # 0.9 K/mcL (0.0-1.3); Monocytes % 10.8 %; Neutrophils # 5.9 K/mcL (1.6-8.9); Platelet Count 110 K/mcL (140-400); Red Blood Count 2.13 M/mcL (4.19-5.50); Red Cell Distribution Width 16.1 % (11.5-14.5); Segmented Neutrophils % 71.3 %; White Blood Count 8.3 K/mcL (4.3-11.1)
[2021-08-18 08:46] LABS: Albumin 5.3 g/dL (3.5-5.7); Albumin/Globulin Ratio 2.5 (1.1-2.2); Bilirubin,Total 1.9 mg/dL (0.3-1.0); Calcium 10.3 mg/dL (8.6-10.3); Globulin 2.1 g/dL (2.4-3.5); Potassium 3.3 mEq/L (3.5-5.1); Total Protein 7.4 g/dL (6.4-8.9)
[2021-08-18] MEDS: Lactulose Oral Soln 20 GM/30 ML UDC PO SCH ×3 (08:51→19:55)
[2021-08-18] MEDS: *HR* Amiodarone 200 MG TABLET PO SCH ×2 (08:52→19:56)
[2021-08-18] MEDS: Cyanocobalamin (B-12) 1,000 MCG TABLET PO SCH (08:52)
[2021-08-19] MEDS: Octreotide 50 MCG/ML INJ SQ SCH ×3 (00:18→18:53)
[2021-08-19 00:48] LABS: Hematocrit 25.7 % (37.5-50.1); Hemoglobin 8.1 g/dL (12.9-16.9); Mean Corpuscular HGB Conc 31.5 g/dL (31.6-35.5); Mean Corpuscular Hemoglobin 34.2 pg (28.0-33.3); Mean Corpuscular Volume 108.4 fL (83.0-100.0); Mean Platelet Volume 11.3 fL (9.4-12.4); Platelet Count 102 K/mcL (140-400); Red Blood Count 2.37 M/mcL (4.19-5.50); Red Cell Distribution Width 15.9 % (11.5-14.5); White Blood Count 9.9 K/mcL (4.3-11.1)
[2021-08-19 01:06] LABS: Albumin 4.8 g/dL (3.5-5.7); Albumin/Globulin Ratio 2.1 (1.1-2.2); Bilirubin,Direct 0.8 mg/dL (0.0-0.2); Bilirubin,Indirect 1.1 mg/dL (0.0-1.0); Bilirubin,Total 1.9 mg/dL (0.3-1.0); Calcium 10.3 mg/dL (8.6-10.3); Globulin 2.3 g/dL (2.4-3.5); Potassium 3.5 mEq/L (3.5-5.1); Total Protein 7.1 g/dL (6.4-8.9)
[2021-08-19] MEDS: Albumin 25% 25gram/100mL 25 GM/100 ML IV.SOLN IVPB SCH ×4 (01:45→18:52)
[2021-08-19] MEDS: Cyanocobalamin (B-12) 1,000 MCG TABLET PO SCH (08:53)
[2021-08-19] MEDS: Lactulose Oral Soln 20 GM/30 ML UDC PO SCH ×3 (08:54→21:04)
[2021-08-19] MEDS ORDERED: 0.9 % Sodium Chloride 500 ML ONE (10:29)
[2021-08-19] MEDS ORDERED: *HR* Heparin 5,000 UNIT/ML VIAL ONE (11:23)
[2021-08-19] MEDS ORDERED: *HR* Heparin 10,000 UNIT/10 ML VIAL IV PRN (12:13)
[2021-08-19] MEDS ORDERED: Albumin 25% 25gram/100mL 25 GM/100 ML IV.SOLN IVPB PRN (12:13)
[2021-08-19] MEDS ORDERED: 0.9 % Sodium Chloride 250 ML IVC PRN (12:13)
[2021-08-19] MEDS ORDERED: 0.9 % Sodium Chloride 1,000 ML PRIME SCH (12:15)
[2021-08-19] MEDS ORDERED: Haloperidol Lactate 5 MG/ML VIAL IVP ONE (20:59)
[2021-08-19] MEDS ORDERED: 0.9 % Sodium Chloride 500 ML IVC ONE (22:41)
[2021-08-20] MEDS: Octreotide 50 MCG/ML INJ SQ SCH ×3 (01:46→17:44)
[2021-08-20] MEDS: Albumin 25% 25gram/100mL 25 GM/100 ML IV.SOLN IVPB SCH ×4 (01:47→19:59)
[2021-08-20 06:08] LABS: Albumin/Globulin Ratio 2.8 (1.1-2.2); Globulin 1.8 g/dL (2.4-3.5); Potassium 3.6 mEq/L (3.5-5.1); Total Protein 6.8 g/dL (6.4-8.9)
[2021-08-20 06:34] LABS: Red Cell Distribution Width 15.9 % (11.5-14.5)
[2021-08-20 06:36] LABS: Basophils # 0.1 K/mcL (0.0-0.2); Basophils % 0.7 %; Eosinophils # 0.2 K/mcL (0.0-0.6); Eosinophils % 2.3 %; Hematocrit 20.8 % (37.5-50.1); Hemoglobin 6.7 g/dL (12.9-16.9); Immature Granulocytes % 0.3 % (0-4); Immature Platelets 8.7 % (1.1-6.1); Lymphocytes # 1.2 K/mcL (0.6-4.6); Lymphocytes % 13.6 %; Mean Corpuscular HGB Conc 32.2 g/dL (31.6-35.5); Mean Corpuscular Hemoglobin 35.1 pg (28.0-33.3); Mean Corpuscular Volume 108.9 fL (83.0-100.0); Mean Platelet Volume 11.5 fL (9.4-12.4); Monocytes # 0.9 K/mcL (0.0-1.3); Monocytes % 9.9 %; Neutrophils # 6.3 K/mcL (1.6-8.9); Red Blood Count 1.91 M/mcL (4.19-5.50); Segmented Neutrophils % 73.2 %; White Blood Count 8.6 K/mcL (4.3-11.1)
[2021-08-20 06:42] LABS: Platelet Count 88 K/mcL (140-400)
[2021-08-20] MEDS: Cyanocobalamin (B-12) 1,000 MCG TABLET PO SCH (07:46)
[2021-08-20] MEDS: Lactulose Oral Soln 20 GM/30 ML UDC PO SCH ×3 (07:47→22:04)
[2021-08-20] MEDS ORDERED: 0.9 % Sodium Chloride 250 ML IVC PRN (08:09)
[2021-08-20] MEDS ORDERED: *HR* Heparin 10,000 UNIT/10 ML VIAL IV PRN (08:09)
[2021-08-20] MEDS ORDERED: 0.9 % Sodium Chloride 500 ML IVC ONE (09:03)
[2021-08-20] MEDS ORDERED: DESMOPRESSIN ACETATE IVPB ONE (10:22)
[2021-08-20] MEDS ORDERED: SODIUM CHLORIDE 0.9% IVPB ONE (10:22)
[2021-08-20] MEDS ORDERED: Ringers Solution, Lactated 1,000 ML IVC ONE (10:23)
[2021-08-20] MEDS: cefTRIAXone 2,000 MG in Water for inj. (sterile) 20 ML IVP SCH (12:09)
[2021-08-20] MEDS: Pantoprazole 40 MG VIAL IVP SCH (12:09)
[2021-08-20 19:20] LABS: Hematocrit 22.6 % (37.5-50.1); Hemoglobin 7.3 g/dL (12.9-16.9)
[2021-08-21] MEDS: Octreotide 50 MCG/ML INJ SQ SCH ×3 (00:10→17:20)
[2021-08-21] MEDS: Albumin 25% 25gram/100mL 25 GM/100 ML IV.SOLN IVPB SCH ×3 (01:47→14:59)
[2021-08-21 05:15] LABS: Immature Granulocytes % 0.4 % (0-4); Red Cell Distribution Width 17.2 % (11.5-14.5)
[2021-08-21 05:17] LABS: Basophils # 0.1 K/mcL (0.0-0.2); Basophils % 0.8 %; Eosinophils # 0.5 K/mcL (0.0-0.6); Eosinophils % 5.4 %; Hematocrit 22.9 % (37.5-50.1); Hemoglobin 7.2 g/dL (12.9-16.9); Lymphocytes # 0.9 K/mcL (0.6-4.6); Lymphocytes % 9.1 %; Mean Corpuscular HGB Conc 31.4 g/dL (31.6-35.5); Mean Platelet Volume 11.3 fL (9.4-12.4); Monocytes # 0.8 K/mcL (0.0-1.3); Monocytes % 8.8 %; Neutrophils # 7.2 K/mcL (1.6-8.9); Red Blood Count 2.12 M/mcL (4.19-5.50); Segmented Neutrophils % 75.5 %; White Blood Count 9.5 K/mcL (4.3-11.1)
[2021-08-21 05:19] LABS: Platelet Count 92 K/mcL (140-400)
[2021-08-21 05:21] LABS: INR 1.8; Prothrombin Time 20.5 Seconds (9.4-12.1)
[2021-08-21 05:41] LABS: Albumin 5.1 g/dL (3.5-5.7); Albumin/Globulin Ratio 2.1 (1.1-2.2); Bilirubin,Total 1.9 mg/dL (0.3-1.0); Calcium 10.2 mg/dL (8.6-10.3); Globulin 2.4 g/dL (2.4-3.5); Potassium 3.7 mEq/L (3.5-5.1); Total Protein 7.5 g/dL (6.4-8.9)
[2021-08-21] MEDS: Pantoprazole 40 MG VIAL IVP SCH (09:42)
[2021-08-21] MEDS: Cyanocobalamin (B-12) 1,000 MCG TABLET PO SCH (09:42)
[2021-08-21] MEDS: cefTRIAXone 2,000 MG in Water for inj. (sterile) 20 ML IVP SCH (09:42)
[2021-08-21] MEDS ORDERED: Furosemide 40 MG/4 ML VIAL IVP ONE (09:42)
[2021-08-21] MEDS: Lactulose Oral Soln 20 GM/30 ML UDC PO SCH ×5 (09:43→22:51)
[2021-08-22] MEDS: Octreotide 50 MCG/ML INJ SQ SCH ×3 (06:40→17:17)
[2021-08-22 08:03] LABS: Basophils % 0.6 %; Hemoglobin 7.3 g/dL (12.9-16.9); Mean Corpuscular Hemoglobin 34.9 pg (28.0-33.3); Red Blood Count 2.09 M/mcL (4.19-5.50)
[2021-08-22 08:05] LABS: Basophils # 0.1 K/mcL (0.0-0.2); Eosinophils # 0.5 K/mcL (0.0-0.6); Eosinophils % 4.8 %; Hematocrit 22.6 % (37.5-50.1); Immature Granulocytes % 0.4 % (0-4); Lymphocytes % 9.6 %; Mean Corpuscular HGB Conc 32.3 g/dL (31.6-35.5); Mean Corpuscular Volume 108.1 fL (83.0-100.0); Mean Platelet Volume 11.3 fL (9.4-12.4); Monocytes # 0.9 K/mcL (0.0-1.3); Monocytes % 9.3 %; Neutrophils # 7.6 K/mcL (1.6-8.9); Red Cell Distribution Width 17.2 % (11.5-14.5); Segmented Neutrophils % 75.3 %; White Blood Count 10.1 K/mcL (4.3-11.1)
[2021-08-22 08:31] LABS: Platelet Count 93 K/mcL (140-400)
[2021-08-22 08:44] LABS: Albumin 4.8 g/dL (3.5-5.7); Albumin/Globulin Ratio 1.8 (1.1-2.2); Bilirubin,Total 1.6 mg/dL (0.3-1.0); Calcium 10.1 mg/dL (8.6-10.3); Globulin 2.6 g/dL (2.4-3.5); Potassium 3.8 mEq/L (3.5-5.1); Total Protein 7.4 g/dL (6.4-8.9)
[2021-08-22] MEDS: Cyanocobalamin (B-12) 1,000 MCG TABLET PO SCH (08:54)
[2021-08-22] MEDS: Pantoprazole 40 MG VIAL IVP SCH (08:55)
[2021-08-22] MEDS: Lactulose Oral Soln 20 GM/30 ML UDC PO SCH ×3 (08:55→20:16)
[2021-08-22] MEDS ORDERED: 0.9 % Sodium Chloride 250 ML IVC PRN (11:59)
[2021-08-22] MEDS ORDERED: *HR* Heparin 10,000 UNIT/10 ML VIAL IV PRN (12:15)
[2021-08-22] MEDS: cefTRIAXone 2,000 MG in Water for inj. (sterile) 20 ML IVP SCH (12:31)
[2021-08-23] MEDS: Octreotide 50 MCG/ML INJ SQ SCH ×3 (00:29→16:10)
[2021-08-23 05:07] LABS: Hematocrit 23.1 % (37.5-50.1); Hemoglobin 7.4 g/dL (12.9-16.9); Immature Platelets 7.9 % (1.1-6.1); Mean Corpuscular Hemoglobin 34.9 pg (28.0-33.3); Mean Platelet Volume 11.7 fL (9.4-12.4); Red Blood Count 2.12 M/mcL (4.19-5.50); Red Cell Distribution Width 17.1 % (11.5-14.5)
[2021-08-23 05:24] LABS: Albumin 4.5 g/dL (3.5-5.7); Albumin/Globulin Ratio 1.6 (1.1-2.2); Bilirubin,Total 1.4 mg/dL (0.3-1.0); Calcium 9.7 mg/dL (8.6-10.3); Globulin 2.8 g/dL (2.4-3.5); Potassium 3.7 mEq/L (3.5-5.1); Total Protein 7.3 g/dL (6.4-8.9)
[2021-08-23] MEDS: Lactulose Oral Soln 20 GM/30 ML UDC PO SCH ×4 (09:03→23:47)
[2021-08-23] MEDS: Cyanocobalamin (B-12) 1,000 MCG TABLET PO SCH (09:03)
[2021-08-24] MEDS: Octreotide 50 MCG/ML INJ SQ SCH ×4 (00:10→23:29)
[2021-08-24 03:02] LABS: Hemoglobin 7.7 g/dL (12.9-16.9); Mean Corpuscular Volume 110.7 fL (83.0-100.0); Mean Platelet Volume 11.5 fL (9.4-12.4)
[2021-08-24 03:03] LABS: Hematocrit 24.9 % (37.5-50.1); Immature Platelets 6.6 % (1.1-6.1); Mean Corpuscular HGB Conc 30.9 g/dL (31.6-35.5); Mean Corpuscular Hemoglobin 34.2 pg (28.0-33.3); Red Blood Count 2.25 M/mcL (4.19-5.50); Red Cell Distribution Width 17.2 % (11.5-14.5); White Blood Count 11.7 K/mcL (4.3-11.1)
[2021-08-24 03:10] LABS: Calcium 9.5 mg/dL (8.6-10.3); Potassium 3.9 mEq/L (3.5-5.1)
[2021-08-24] MEDS: Lactulose Oral Soln 20 GM/30 ML UDC PO SCH ×3 (07:41→21:48)
[2021-08-24] MEDS: Cyanocobalamin (B-12) 1,000 MCG TABLET PO SCH (07:43)
[2021-08-24] MEDS ORDERED: Haloperidol Oral Conc 10 MG/5 ML UDC PO PRN (10:47)
[2021-08-24] MEDS: Nystatin POWDER 30 GM BOTTLE TP SCH (23:29)
[2021-08-25 04:26] VITALS: PULSE 89
[2021-08-25] MEDS: Lactulose Oral Soln 20 GM/30 ML UDC PO SCH ×2 (08:20→15:20)
[2021-08-25] MEDS: Cyanocobalamin (B-12) 1,000 MCG TABLET PO SCH (08:21)
[2021-08-25] MEDS: Nystatin POWDER 30 GM BOTTLE TP SCH (08:22)
[2021-08-25] MEDS: Octreotide 50 MCG/ML INJ SQ SCH ×2 (08:25→15:20)
[2021-08-25 10:43] VITALS: BP 96/65; TEMP 97.4; O2SAT 95
== END 2021-08-25 16:33 | disposition hospice, home (50) | DRG 432 ==
LOC: 2NENU → SUATTDRO 16:21
PROVIDERS: ADMIT Family Medicine; ATTEND Internal Medicine